=== PATIENT | female | born 1965 | race Caucasian/White ===

== ENCOUNTER 2018-07-10 05:51 | Outpatient (CLI) | payer BC ==
[~2018-07-10] VITALS: Ht 162.6 cm; Wt 92.5 kg
[2018-07-10] MEDS ORDERED: CITA40TA11 PO (11:20)
[2018-07-10] MEDS ORDERED: ACET-2469 PO (11:20)
== END 2018-07-10 11:35 | disposition home or self-care (01) ==
LOC: PREOP 05:51
PROVIDERS: ATTEND Surgery
DX: Z01.818 Encounter for other preprocedural examination (principal)

== ENCOUNTER → 2018-07-14 | Day surgery (SDC) | payer BC ==
[~2018-07-14] VITALS: Ht 162.6 cm; Wt 92.5 kg
[~2018-07-14] MED LIST: ACET-2469 PO; CITA40TA11 PO; LACTATED RINGERS 1,000 ML IV ONE; LACTATED RINGERS 1,000 ML IV PRN; MIDAZOLAM 2 MG/2 ML (VERSED) VIAL ONE; PROPOFOL INJECTION 50 ML IV ONE
--- OUTSIDE RECORDS SUMMARY | 2018-07-14 13:55 | XMS REPORT ---
Author Author BUCK MARLOW [facility] Address [address] [place] [address] Care Team Providers Care Radar Scientist Name Role Phone BUCK MARLOW Unavailable PROBLEMS Unknown Problems ALLERGIES No Information ENCOUNTERS Encounter Location Date Diagnosis [facility] [id number] [place], [place] [id number] Feb, [facility] [id number] [place], [place] [id number] Aug, Dental examination V72.2 IMMUNIZATIONS No Known Immunizations SOCIAL HISTORY Never Assessed REASON FOR VISIT NEW SCRIPT REQUEST PLAN OF CARE VITAL SIGNS MEDICATIONS Unknown Medications RESULTS No Results PROCEDURES No Known procedures INSTRUCTIONS MEDICATIONS ADMINISTERED No Known Medications
[2018-07-14 14:15] VITALS: BP 139/80
--- NOTE | 2018-07-14 15:09 | Progress Note-Pre Operative ---
Pre-Operative Progress Note H&P Reviewed The H&P was reviewed, patient examined and no changes noted. Date Seen by Provider: Jul 14, 2018 Time Seen by Provider: 15:08 Date H&P Reviewed: Jul 14, 2018 Time H&P Reviewed: 15:08 Pre-Operative Diagnosis: screening colonoscopy, ruq abdominal pain ONOFRE AGUILAR DO Jul 14, 2018 15:09
[2018-07-14] MEDS: HURRICAINE EXT TUBE (BENZOCAINE) XX PRN ×2 (15:28→15:37)
[2018-07-14 16:15] VITALS: BP 135/60
--- NOTE | 2018-07-14 16:16 | Discharge Inst-Simple/Standard ---
Discharge Inst-Standard Discharge Medications New, Converted or Re-Newed RX: RX on Chart Patient Instructions/Follow Up Plan of Care/Instructions/FU: 2 weeks Marline Activity as Tolerated: Yes Discharge Diet: Regular Diet ONOFRE AGUILAR DO Jul 14, 2018 16:16
--- NOTE | 2018-07-14 16:18 | Progress Note-Post Operative ---
Post-Operative Progess Note Surgeon (s)/Fleet Manager (s) Surgeon ONOFRE AGUILAR DO Fleet Manager: na Pre-Operative Diagnosis screening colonoscopy, ruq abdominal pain Post-Operative Diagnosis polyp at ge junction, transverse colon polyp x 2 Procedure & Operative Findings Date of Procedure 07/14/18 Procedure Performed/Findings egd c biopsies colonoscopy c hot bx polypectomy x 2 Anesthesia Type per educational technology specialist Estimated Blood Loss Estimated blood loss (mL): scant Specimens/Packing Specimens Removed transverse colon polyp x 2 ONOFRE AGUILAR DO Jul 14, 2018 16:18
[2018-07-14 16:30] VITALS: BP 136/62
[2018-07-14 16:40] VITALS: BP 136/62
--- NOTE | 2018-07-15 02:52 | OPERATIVE REPORT ---
DATE OF SERVICE: 07/14/2018 PREOPERATIVE DIAGNOSIS: Screening colonoscopy, right upper quadrant abdominal pain. POSTOPERATIVE DIAGNOSES: 1. Polyp of the GE junction, transverse colon polyp x2. 2. Diverticulosis. PROCEDURE: EGD with biopsies, colonoscopy with hot biopsy polypectomy x2. SURGEON: Onofre Horan DO ANESTHESIA: Per CLOTHING TRADES WORKERS. ESTIMATED BLOOD LOSS: Scant. COMPLICATIONS: None. INDICATIONS: The patient is a 53-year-old female who has been having right upper quadrant abdominal pain. She also is due for screening colonoscopy. She understands risks and benefits of procedures and wished to proceed with procedure. Consent was signed on the chart. DESCRIPTION OF PROCEDURE: The patient was taken to the endoscopy suite, placed in left lower recumbent position. Timeout was performed. Scope was inserted in mouth, down the esophagus, stomach and duodenum without difficulty. There were no polyps, mass or ulcerations within the duodenum. Scope was slowly retracted back to the stomach where it was further insufflated. No significant changes to the stomach. There were no polyps, mass or ulcerations. Biopsy of the antrum was obtained. Scope was retroflexed noting a small polyp at the GE junction, has a fairly benign appearance. No other pathology noted. Scope was returned to its normal position, slowly withdrawn to the distal esophagus, which had no polyps, mass or ulcerations. Biopsy of the GE junction was obtained. Scope was then slowly retracted back until completely removed. Digital rectal exam was performed. There were no palpable polyps, mass or ulcerations. The scope was inserted into the rectum and advanced all the way to the cecum with minimal difficulty. Prep was adequate. Scope was slowly retracted back. There were no polyps, mass or ulceration in the cecum, ascending colon. In the transverse colon there were 2 small polyps were present, which hot biopsy polypectomies were performed. Scope was slowly retracted back. There were no polyps, masses or ulcerations within the remainder of the transverse colon, descending, sigmoid and rectum. Once in the rectum, scope was also retroflexed noting no other pathology. Through the sigmoid colon, there was also some diverticulosis present. The scope was retroflexed noting no other pathology. Scope was returned to its normal position, slowly withdrawn until completely removed. RECOMMENDATIONS: The patient is recommended high fiber diet. The patient will follow up on biopsies in 2 weeks. The patient would likely benefit from repeat EGD in one year to reevaluate the GE junction polyp to make sure it is unchanged. The patient will need repeat colonoscopy in 5 years. If she has any issues before that will be seen at that time. Job ID: [id number] DocumentID: [id number] Dictated Date: 07/14/2018 16:21:09 Smoking Pipe Maker Date: 07/15/2018 02:51:46 Dictated By: ONOFRE HORAN DO
== END | disposition home or self-care (01) ==
LOC: ENDO 13:52
PROVIDERS: ATTEND Surgery
DX: Z12.11 Encounter for screening for malignant neoplasm of colon (principal); D12.3 Benign neoplasm of transverse colon; K57.30 Diverticulosis of large intestine without perforation or abscess without bleeding; K29.50 Unspecified chronic gastritis without bleeding; B96.81 Helicobacter pylori [H. pylori] as the cause of diseases classified elsewhere; K31.7 Polyp of stomach and duodenum; F32.9 Major depressive disorder, single episode, unspecified; Z79.899 Other long term (current) drug therapy
CPT/HCPCS: 84703

== ENCOUNTER → 2018-07-16 | Outpatient (CLI) | payer BC ==
[~2018-07-16] MED LIST changes: -LACTATED RINGERS 1,000 ML IV ONE; -LACTATED RINGERS 1,000 ML IV PRN; -MIDAZOLAM 2 MG/2 ML (VERSED) VIAL ONE; -PROPOFOL INJECTION 50 ML IV ONE
--- NOTE | 2018-07-16 12:26 | Diagnostic Imaging Report ---
PROCEDURE: US Gallbladder. TECHNIQUE: Multiple real-time grayscale images were obtained over the right upper quadrant in various projections. INDICATION: Abdominal pain in the right upper quadrant as well as right shoulder pain. FINDINGS: The liver is at the upper limits of normal in size at 18.1 cm. There is a circumscribed hypoechoic mass in the left lobe of liver measuring approximately 2.1 x 1.7 cm in size. This may represent a cyst. No other liver masses are seen. The portal vein is patent and shows normal direction of flow. The gallbladder is contracted. No definite stones or sludge are seen. No definite wall thickening or pericholecystic fluid is identified. No biliary ductal dilatation is identified. Right kidney demonstrates normal cortical thickness and echogenicity. The right renal pelvis is mildly prominent consistent with pelviectasis. No calculi are seen. No brandon hydronephrosis is identified. There is no ascites. The pancreas was obscured by bowel gas. IMPRESSION: 1. 2 cm circumscribed hypoechoic mass left lobe of the liver. This most likely represents a cyst but correlation with CT would be useful for confirmation. 2. Minimal right renal pelviectasis. No calculi or brandon hydronephrosis is identified. 3. Gallbladder contraction, limiting evaluation. No definite calculi or evidence of biliary ductal dilatation is identified. Dictated by: Dictated on workstation # [id number]
== END ==
LOC: RAD 07:47
PROVIDERS: ATTEND Surgery
DX: K82.0 Obstruction of gallbladder (principal); R16.0 Hepatomegaly, not elsewhere classified; R10.11 Right upper quadrant pain; M25.511 Pain in right shoulder
CPT/HCPCS: 76705

== ENCOUNTER → 2018-07-30 | Outpatient (CLI) | payer BC ==
[~2018-07-30] MED LIST changes: +CATHETER FLUSH 10 ML SYR IV PRN
--- NOTE | 2018-07-30 12:27 | Diagnostic Imaging Report ---
INDICATION: Right upper quadrant pain PROCEDURE: Hepatobiliary scan with gallbladder ejection TECHNIQUE: 4.97 mCi of technetium 99m Choletec was given intravenously. An Ensure drink was administered at 60 minutes for the ejection fraction. DESCRIPTION OF PROCEDURE: There is homogeneous uptake of isotope throughout the liver. The cystic duct and common duct are both patent. The gallbladder ejection fraction was 89%. IMPRESSION: Normal hepatobiliary scan and gallbladder ejection. Dictated by: Dictated on workstation # [id number]
== END ==
LOC: CARD 09:01
PROVIDERS: ATTEND Surgery
DX: R10.11 Right upper quadrant pain (principal); M25.511 Pain in right shoulder
CPT/HCPCS: 78227

== ENCOUNTER 2018-08-07 05:31 | Outpatient (CLI) | payer BC ==
[~2018-08-07] VITALS: Ht 162.6 cm; Wt 92.5 kg
[~2018-08-07 05:31] MED LIST changes: -CATHETER FLUSH 10 ML SYR IV PRN
== END 2018-08-07 12:50 | disposition home or self-care (01) ==
LOC: PREOP 05:31
PROVIDERS: ATTEND Surgery
DX: Z01.818 Encounter for other preprocedural examination (principal)

== ENCOUNTER 2018-08-14 07:05 | Day surgery (SDC) | payer BC ==
[2018-08-14] VITALS (10 sets, daily range): BP systolic 102–150; BP diastolic 9–86
[~2018-08-14] VITALS: Ht 162.6 cm; Wt 92.5 kg
[2018-08-14] MEDS ORDERED: LACTATED RINGERS 1,000 ML IV PRN (07:29)
[2018-08-14] MEDS ORDERED: ceFAZolin 2 GM/50 ML NS 50 ML IV ONE (07:30)
[2018-08-14] MEDS ORDERED: BUP/EPI 0.5% 1:200,000 (SENSORCAINE) 30 ML VIAL ONE (07:37)
[2018-08-14] MEDS ORDERED: LIDOCAINE 1% INJ 20 ML 20 ML VIAL ONE (07:37)
[2018-08-14] MEDS ORDERED: proPOfol 200 MG/20 ML (DIPRIVAN) VIAL IV ONE (08:00)
[2018-08-14] MEDS ORDERED: SEVOFLURANE (ULTANE) 15 ML INHAL SOLN ONE ×2 (08:00→09:57)
[2018-08-14] MEDS ORDERED: GLYCOPYRROLATE 0.2 MG/ML (ROBINUL) 2 ML VIAL ONE ×2 (08:00→09:53)
[2018-08-14] MEDS ORDERED: NEOSTIGMINE 1 MG/ML 5 ML SYRINGE ONE (08:00)
[2018-08-14] MEDS ORDERED: DEXAMETHASONE 10 MG/ML (DECADRON) 1 ML VIAL ONE (08:00)
[2018-08-14] MEDS ORDERED: ROCURONIUM 10 MG/ML 5 ML SYRINGE IV ONE (08:00)
[2018-08-14] MEDS ORDERED: ONDANSETRON 4 MG/2 ML (SDV) Z0FRAN ONE (08:00)
[2018-08-14] MEDS ORDERED: LIDOCAINE PF 2% 5 ML (XYLOCAINE) VIAL ONE (08:00)
[2018-08-14] MEDS ORDERED: MIDAZOLAM 2 MG/2 ML (VERSED) VIAL ONE (08:01)
[2018-08-14] MEDS ORDERED: fentaNYL INJECTION 100 MCG/2 ML AMP ONE (08:01)
--- NOTE | 2018-08-14 08:12 | Progress Note-Pre Operative ---
Pre-Operative Progress Note H&P Reviewed The H&P was reviewed, patient examined and no changes noted. Date Seen by Provider: August 14, 2018 Time Seen by Provider: 08:00 Date H&P Reviewed: August 14, 2018 Time H&P Reviewed: 08:00 Pre-Operative Diagnosis: ruq abd pain, hyperkinetic gallbladder ONOFRE AGUILAR DO August 14, 2018 08:12
[2018-08-14] MEDS ORDERED: LACTATED RINGERS 1,000 ML IV ONE (09:53)
[2018-08-14] MEDS ORDERED: KETOROLAC 30 MG/ML VIAL ONE (09:57)
--- NOTE | 2018-08-14 09:57 | Progress Note-Post Operative ---
Post-Operative Progess Note Surgeon (s)/Candle Making Supervisor (s) Surgeon ONOFRE AGUILAR DO Candle Making Supervisor: Dr. Lal Pre-Operative Diagnosis ruq abd pain, hyperkinetic gallbladder Post-Operative Diagnosis same Procedure & Operative Findings Date of Procedure 08/14/18 Procedure Performed/Findings lap lily c ioc Anesthesia Type gen Estimated Blood Loss Estimated blood loss (mL): min Specimens/Packing Specimens Removed gallbladder ONOFRE AGUILAR DO August 14, 2018 09:57
[2018-08-14] MEDS ORDERED: ACHD5005 PO (09:59)
[2018-08-14] MEDS ORDERED: DOCU-143 PO (09:59)
--- NOTE | 2018-08-14 10:01 | Discharge Inst-Simple/Standard ---
Discharge Inst-Standard Discharge Medications New, Converted or Re-Newed RX: RX on Chart Patient Instructions/Follow Up Plan of Care/Instructions/FU: 2 weeks Marline Activity as Tolerated: No Discharge Diet: Regular Diet Other Inst to Patient Follow up Appt: Make appointment for 2 weeks. Instructions: No lifting greater than 10 pounds. No strenuous activity. May shower in 24 hours, no tub bath or soaking. Use incentive spirometer at home as directed. No Smoking Skin/Wound Care: You have special glue over incisions it will fall off on its own. Symptoms to Report: Appetite Changes, Extremity Discoloration, Numbness/Tingling, Swelling Increased , Bleeding Excessive, Eyesight Changes, Pain Increased, Urine Color Change, Constipation(Persistent), Fever over 101 degree F, Pain/Pressure in chest, Urinating Difficulty, Cough Up/Vomit Blood, Heart Beat Irreg/Pounding, Pain/ Pressure in jaw, Vaginal Bleeding Increase, Cramps in feet or legs, Lightheadedness, Pain/Pressure in shoulder, Diarrhea(Persistent), Memory Changes Suddenly, Questions/Concerns, Weight gain consecutive days, Dizziness/ Fainting, Nausea/Vomiting, Shortness of Breath, Weight gain over 2 pounds. If eyes or skin turn yellow notify physician. If questions or concerns contact your physician Or seek help at emergency department. ONOFRE AGUILAR DO August 14, 2018 10:01
[2018-08-14] MEDS ORDERED: morphine INJ 10 MG/ML 1ML (SYR OR VIAL) ONE (10:10)
[2018-08-14] MEDS ORDERED: HYDROmorphone 2 MG/ML VIAL (DILAUDID) IV ONE (10:15)
[2018-08-14] MEDS ORDERED: morphine INJ 10 MG/ML 1ML (SYR OR VIAL) IVP ONE (10:15)
[2018-08-14] MEDS ORDERED: ONDANSETRON 4 MG/2 ML (SDV) Z0FRAN IVP PRN (10:15)
[2018-08-14] MEDS ORDERED: NYST1000 PO (11:23)
[2018-08-14] MEDS ORDERED: HYDROcodone/APAP 5 MG/325 MG (LORTAB) TAB ONE (12:02)
[2018-08-14] MEDS ORDERED: HYDROcodone/APAP 5 MG/325 MG (LORTAB) TAB PO ONE (12:15)
[2018-08-14] MEDS ORDERED: ONDANSETRON 4 MG (ZOFRAN) ORAL DISSOLVE TAB ONE (12:25)
[2018-08-14] MEDS ORDERED: ONDANSETRON 4 MG (ZOFRAN) ORAL DISSOLVE TAB PO ONE (12:30)
--- NOTE | 2018-08-14 13:06 | Anesthesia-General Post-Op ---
General Patient Condition Mental Status/LOC: Same as Preop Cardiovascular: Satisfactory Nausea/Vomiting: Absent Respiratory: Satisfactory Pain: Controlled Complications: Absent Post Op Complications Complications None Follow Up Care/Instructions Patient Instructions None needed. Anesthesia/Patient Condition Patient Condition Patient was seen after the procedure this morning and she was doing well, no complaints, stable vital signs, no apparent adverse anesthesia problems. RUSSELL SALTER DO August 14, 2018 13:06
--- NOTE | 2018-08-14 13:31 | Diagnostic Imaging Report ---
INDICATION: Fluoroscopy during intraoperative cholangiogram. FINDINGS: Fluoroscopy was provided in the OR during intraoperative cholangiogram. A total of 9 seconds of fluoroscopy was utilized. Images demonstrate contrast being injected via the cystic duct remnant. Visualized intrahepatic and extrahepatic bile ducts are normal caliber. There are no filling defects to suggest retained stone. Contrast is seen within the duodenum. IMPRESSION: Fluoroscopy during intraoperative cholangiogram. Dictated by: Dictated on workstation # [id number]
--- NOTE | 2018-08-14 22:01 | OPERATIVE REPORT ---
DATE OF SERVICE: 08/14/2018 PREOPERATIVE DIAGNOSIS: Right upper quadrant abdominal pain and hyperkinetic gallbladder. POSTOPERATIVE DIAGNOSIS: Right upper quadrant abdominal pain and hyperkinetic gallbladder. PROCEDURE: Laparoscopic cholecystectomy with intraoperative cholangiogram. SURGEON: Onofre Horan DO TELEVISION JOURNALIST: Dr. Lal, assisted in retraction, dissection and closure. ANESTHESIA: General. ESTIMATED BLOOD LOSS: Minimal. COMPLICATIONS: None. INDICATIONS: The patient is a 53-year-old female who has been having right upper quadrant abdominal pain and gallbladder ejection fraction was found to be greater than 80%. She understands risks and benefits of procedure and wished to proceed with procedure. Consent was signed on the chart. DESCRIPTION OF PROCEDURE: The patient was taken to the operating suite. She was prepped and draped in sterile fashion. Timeout was performed. Midline incision was made just above the umbilicus for a 12 mm trocar site. Cautery dissection was taken down the fascia, which was then scored, grasped and elevated. The abdomen was then entered. An 0 Vicryl was placed in a ywodrk-po-axqxc fashion for a closure at the end of the case. A balloon trocar was inserted in the abdomen. Pneumoperitoneum was achieved. Under direct visualization of the laparoscope, a 5 mm trocar was placed in the subxiphoid region and two 5 mm trocars were placed in the right upper quadrant. Gallbladder was grasped, elevated. The cystic duct and cystic artery were then dissected out. Clips were placed on the proximal and distal portion of the cystic artery and distal portion of the cystic duct. The duct was then partially transected. Arrow catheter was inserted and cholangiogram was performed. There were no filling defects. Contrast made its way into the duodenum without difficulty. The catheter was then removed. Clips were placed on the proximal portion of the cystic duct. The duct and artery were then transected. Hook cautery used to dissect the gallbladder and the gallbladder fossa achieving hemostasis. The posterior branch of the cystic artery was present, which clips were placed on it and the gallbladder was then removed. It was placed in an Endobag and removed through the 12 mm trocar site. Hemostasis was achieved. The abdomen was irrigated with copious amounts of irrigation and suctioned. The abdomen was desufflated. Trocars were removed. The 0 Vicryl that was placed in dtrpwk-kd-rhkly fashion at the beginning of the case was then tied and the skin was then closed using 4-0 Monocryl in a subcuticular fashion. Skin Affix was placed over the incisions. The patient tolerated the procedure well without any complications. She was taken to recovery room in stable condition. Job ID: [id number] DocumentID: [id number] Dictated Date: 08/14/2018 15:54:48 Protective Signal Installer Date: 08/14/2018 22:00:28 Dictated By: ONOFRE HORAN DO
== END 2018-08-14 12:40 | disposition home or self-care (01) ==
LOC: SDC 07:05
PROVIDERS: ATTEND Surgery
DX: K81.1 Chronic cholecystitis (principal); K21.9 Gastro-esophageal reflux disease without esophagitis; E66.9 Obesity, unspecified; Z68.35 Body mass index [BMI] 35.0-35.9, adult; Z79.84 Long term (current) use of oral hypoglycemic drugs; Z79.899 Other long term (current) drug therapy
CPT/HCPCS: 84703; 87081

== ENCOUNTER → 2018-10-16 | Outpatient (CLI) | payer BC ==
[~2018-10-16] MED LIST changes: +ACHD5005 PO; +DOCU-143 PO; +NYST1000 PO
--- NOTE | 2018-10-16 16:45 | Diagnostic Imaging Report ---
INDICATION: Routine screening. COMPARISON: Prior mammograms from 09/23/2017 and 09/19/2014. EXAMINATION: 2D and 3D bilateral screening mammography was performed with CAD. The current study was also evaluated with a Computer Aided Detection (CAD) system. FINDINGS: Scattered fibroglandular densities are identified, bilaterally. Benign nodules in medial aspect of the right breast are noted. These appear stable. No new mass or malignant appearing microcalcifications are seen. Axillae are unremarkable. IMPRESSION: No mammographic features suspicious for malignancy are identified. ACR BI-RADS Category 2: Benign findings. Result letter will be mailed to the patient. Note: At least 10% of breast cancer is not imaged by mammography. Dictated on workstation # [id number]
== END ==
LOC: RAD 08:28
PROVIDERS: ATTEND Nurse Practitioner Family
DX: Z12.31 Encounter for screening mammogram for malignant neoplasm of breast (principal); M54.31 Sciatica, right side; L30.9 Dermatitis, unspecified; F32.9 Major depressive disorder, single episode, unspecified; Z53.8 Procedure and treatment not carried out for other reasons
CPT/HCPCS: 77067

== ENCOUNTER → 2018-10-21 | Outpatient (CLI) | payer BC ==
--- NOTE | 2018-10-21 16:15 | Diagnostic Imaging Report ---
PROCEDURE: MRI lumbar spine. TECHNIQUE: Multiplanar, multisequence MRI of the lumbar spine was performed without contrast. INDICATION: Chronic low back pain. FINDINGS: Lumbar spinal curvature and alignment are unremarkable. Conus medullaris is unremarkable at the L1 level. There is diffuse desiccation of the lumbar discs. There is diffuse bulging of the L1-L2 disc with right lateral protrusion. This is associated with degenerative facet arthropathy and results in moderate spinal stenosis with moderate right lateral recess stenosis. This does result in mild bilateral neural foraminal stenosis which is greater on the right. At L2-L3, there is diffuse disc bulging with ligamentum flavum hypertrophy and degenerative facet arthropathy which cause mild trefoil-type spinal stenosis and moderate right neural foraminal stenosis. At the L3-L4 level, there is disc bulging and endplate spurring with associated degenerative facet arthropathy which is greater on the left. This causes mild trefoil-type spinal stenosis with moderately severe left lateral recess and neural foraminal stenosis. At L4-L5, there is left paramedian disc protrusion with associated degenerative disc bulging which is eccentric toward the left. This results in moderate left lateral recess and neural foraminal stenosis. There is mild T2 signal surrounding the L2-L3 disc and the endplates to the left of midline at L3-L4. This is likely related to Modic change. No fracture is identified. IMPRESSION: Multilevel degenerative disc and facet disease as described above. This does result in [id number]-[id number] spinal and right lateral recess stenosis at the L2-L3 and L3-L4 levels and greater stenosis on the left at L3-L4 and L4-L5. Dictated by: Dictated on workstation # [id number]
== END ==
LOC: RAD 15:08
PROVIDERS: ATTEND Nurse Practitioner Family
DX: M47.816 Spondylosis without myelopathy or radiculopathy, lumbar region (principal); M51.36 Other intervertebral disc degeneration, lumbar region; M48.061 Spinal stenosis, lumbar region without neurogenic claudication; M51.26 Other intervertebral disc displacement, lumbar region; M54.32 Sciatica, left side; L30.9 Dermatitis, unspecified; F32.9 Major depressive disorder, single episode, unspecified
CPT/HCPCS: 72148

== ENCOUNTER 2019-02-08 09:38 | Emergency (ER) | payer BC ==
[~2019-02-08] VITALS: Ht 162.6 cm; Wt 90.5 kg
[2019-02-08] MEDS ORDERED: CYCLOBENZAPRINE 10 MG (FLEXERIL) TAB PO STA (11:59)
[2019-02-08] MEDS ORDERED: IBUPROFEN 600 MG (MOTRIN) TAB PO ONE (12:00)
--- NOTE | 2019-02-08 12:05 | ED Back Pain ---
General Chief Complaint: Back Problems Stated Complaint: BACK PAIN Nursing Triage Note: complaint of back pain, pt states it chronic. pt states due for "shot " in back on . Nursing Sepsis Screen: No Definite Risk History of Present Illness Date Seen by Provider: Feb 08, 2019 Time Seen by Provider: 11:45 Initial Comments 53-year-old female presents for chronic back pain. She has been seen by Dr. Vasques in his managed by Dr. Caballero for medication (tramadol and gabapentin). She had an MRI in September 2018 which showed significant degenerative changes in stenosis in the lumbar spine. She is scheduled for her third epidural injection on 02/11/19. She denies any injuries today but did more walking than usual over the weekend. She denies any bowel or bladder incontinence or retention. She is not on NSAIDs or muscle relaxant at the present time. Location: Lumbar Spine, Paraspinous Muscles Timing/Duration: Constant Severity: Mild Pain/Injury Location: Back Associated Symptoms: denies symptoms; No muscle spasms, No fever, No weakness, No numbness in legs/feet, No tingling in legs/feet, No sensory/motor loss, No lower back pain, No loss of bladder control, No loss of bowel control, No other Allergies and Home Medications Allergies Coded Allergies: No Known Drug Allergies (Unverified , 08/07/18) Home Medications Citalopram Hydrobromide 40 Mg Tablet, 40 MG PO DAILY, (Reported) Docusate Sodium 100 Mg Capsule, 100 MG PO DAILY Prescribed by: ONOFRE AGUILAR on 08/14/18 0959 Hydrocodone Bit/Acetaminophen 1 Tab Tab, 1-2 TAB PO Q6H PRN for PAIN-MODERATE Prescribed by: ONOFRE AGUILAR on 08/14/18 0959 Nystatin 100,000 Unit/1 Ml Oral.susp, 5 ML PO Q6H Prescribed by: JOHNNA BISHOP on 08/14/18 1123 Patient Home Medication List Home Medication List Reviewed: Yes Review of Systems Constitutional: no symptoms reported, see HPI Musculoskeletal: see HPI, back pain, muscle pain, muscle cramps All Other Systems Reviewed Negative Unless Noted: Yes Past Nzijhtp-Ahylqv-Dkwoud Hx Past Med/Social Hx: Reviewed Nursing Past Med/Soc Hx Patient Social History Alcohol Use: Denies Use Recreational Drug Use: No Smoking Status: Never a Smoker 2nd Hand Smoke Exposure: No Recent Foreign Travel: No Contact w/Someone Who Travel: No Recent Infectious Disease Expo: No Recent Hopitalizations: No Physical Abuse: No Sexual Abuse: No Immunizations Up To Date Date of Influenza Vaccine: Jan 05, 2018 Seasonal Allergies Seasonal Allergies: No Past Medical History Surgeries: Yes (BREAST REDUCTION, CTR, KIDNEY DONaTION) Orthopedic Respiratory: No Cardiac: No Neurological: No Sexually Transmitted Disease: No HIV/AIDS: No Genitourinary: No Gastrointestinal: Yes Gastroesophageal Reflux, Chronic Constipation, Gall Bladder Disease Musculoskeletal: Yes (BACK) Arthritis Endocrine: No HEENT: Yes (GLASSES) Loss of Vision: Bilateral Hearing Impairment: Denies Cancer: No Psychosocial: Yes Depression Integumentary: No Blood Disorders: No Adverse Reaction/Blood Tranf: No (N/A) Physical Exam Vital Signs Vital Signs - First Documented 02/08/19 09:50 Temp 36.6 Pulse 78 Resp 18 B/P (MAP) 143/91 (108) Pulse Ox 98 O2 Delivery Room Air Capillary Refill : Less Than 3 Seconds Height, Weight, BMI Height: 5'4.00" Weight: 204lbs. 0.0oz. 92.104751ab; 34.00 BMI Method: General Appearance: No Apparent Distress, WD/WN Neck: Full Range of Motion, Normal Inspection, Non Tender, Supple Cardiovascular: Regular Rate, Rhythm, No Edema, No Murmur, Normal Peripheral Pulses Respiratory: Chest Non Tender, Lungs Clear, Normal Breath Sounds Back: Normal Inspection, No CVA Tenderness, Decreased Range of Motion, Muscle Spasm, Vertebral Tenderness, Other (patient ambulates with a steady gait, able to toe and heel walk. Decreased range of motion to the lumbar spine, secondary to pain. PowerV/V L4-S1. Sensation to light touch intact bilateral lower extremities.) Extremity: Normal Capillary Refill, Normal Inspection, Normal Range of Motion Neurologic/Psychiatric: Alert, Oriented x3, No Motor/Sensory Deficits, Normal Mood/Affect Skin: Normal Color, Warm/Dry Progress/Results/Core Measures Results/Orders My Orders Orders - JOHNNA BUSTOS Ibuprofen Tablet (Motrin Tablet) (02/08/19 12:00) Cyclobenzaprine Tablet (Flexeril Tablet) (02/08/19 11:59) Medications Given in ED Current Medications Medications Dose Ordered Sig/Danny Route Start Time Stop Time Status Last Admin Dose Admin Ibuprofen 600 mg ONCE ONCE PO 02/08/19 12:00 02/08/19 12:01 DC 02/08/19 12:12 600 MG Vital Signs/I&O 02/08/19 02/08/19 09:50 12:13 Temp 36.6 36.6 Pulse 78 78 Resp 18 18 B/P (MAP) 143/91 (108) 143/91 (108) Pulse Ox 98 98 O2 Delivery Room Air Blood Pressure Mean: 108 POS Departure Impression Primary Impression: Lumbar stenosis Qualified Codes: M48.061 - Spinal stenosis, lumbar region without neurogenic claudication Additional Impression: Lumbar back pain Disposition: HOME, SELF-CARE Condition: Improved Departure-Patient Inst. Decision time for Depature: 12:05 Referrals: NO,LOCAL PHYSICIAN (PCP/Family) Primary Care Physician Patient Instructions: Spinal Stenosis (DC), Low Back Pain (DC) Add. Discharge Instructions: Begin taking the anti-inflammatory medication as previously been prescribed you. Follow-up with your primary care provider or your real estate management specialist for changes in your symptoms or for medication management. Keep your scheduled appointment for your epidural injection later this week. Alternate heat and ice to your low back for 20 minutes every 2 hours while awake. If there is no Tylenol in medication you are taking, you may take Tylenol 650 mg every 8 hours. Return to the emergency department for new, urgent health care needs. All discharge instructions reviewed with patient and/or family. Voiced understanding. Work/School Note: Work Release Form Date Seen in the Emergency Department: Feb 08, 2019 Return to Work: Feb 09, 2019 Restrictions: No Restrictions Copy Copies To 1: SADE CABALLERO DO; PHYLLIS VASQUES MD, AMY ARNP Feb 08, 2019 12:05 POS
[2019-02-08 12:13] VITALS: BP 143/91
== END 2019-02-08 12:13 | disposition home or self-care (01) ==
LOC: EDUNIT# 09:38 → ER 09:38
DX: M48.061 Spinal stenosis, lumbar region without neurogenic claudication (principal); F32.9 Major depressive disorder, single episode, unspecified; K21.9 Gastro-esophageal reflux disease without esophagitis
CPT/HCPCS: 99283

== ENCOUNTER 2019-11-20 13:30 | Emergency (ER) | payer BC, OTHER ==
[~2019-11-20] VITALS: Ht 163 cm; Wt 91.0 kg
[~2019-11-20 13:30] MED LIST changes: -ACET-2469 PO; +ACET-2715 PO
[2019-11-20] MEDS ORDERED: FAMOTIDINE 20 MG (PEPCID) TABLET PO STA (13:50)
[2019-11-20 13:58] LABS: BASOPHILS % (AUTO) 0 % (0-10); EOSINOPHILS # (AUTO) 0.1 10^3/uL (0.0-0.3); EOSINOPHILS % (AUTO) 1 % (0-10); HEMATOCRIT 39 % (35-52); HEMOGLOBIN 13.2 G/DL (11.5-16.0); LYMPHOCYTES # (AUTO) 2.5 X 10^3 (1.0-4.0); LYMPHOCYTES % (AUTO) 25 % (12-44); MEAN CORPUSCULAR HEMOGLOBIN 31 PG (25-34); MEAN CORPUSCULAR HGB CONC 34 G/DL (32-36); MEAN CORPUSCULAR VOLUME 89 FL (80-99); MEAN PLATELET VOLUME 10.6 FL (7.4-10.4); MONOCYTES # (AUTO) 0.8 X 10^3 (0.0-1.0); MONOCYTES % (AUTO) 8 % (0-12); NEUTROPHILS # (AUTO) 6.4 X 10^3 (1.8-7.8); NEUTROPHILS % (AUTO) 65 % (42-75); PLATELET COUNT 309 10^3/uL (130-400); RED CELL DISTRIBUTION WIDTH 14.5 % (10.0-14.5); WHITE BLOOD COUNT 9.8 10^3/uL (4.3-11.0)
--- NOTE | 2019-11-20 13:59 | ED Chest Pain ---
General Chief Complaint: General Problems/Pain Stated Complaint: CHEST PAIN - DIARRHEA Nursing Triage Note: Patient reports chronic diarrhea, with it getting worse over the past couple weeks. states for about 1 week had cramping pain in her chest. denies SOA. Nursing Sepsis Screen: No Definite Risk Source: patient Exam Limitations: no limitations History of Present Illness Date Seen by Provider: Nov 20, 2019 Time Seen by Provider: 13:30 Initial Comments Patient presents ER by private conveyance with chief complaint that today she started to experience some pressure in her left upper quadrant chest that is not made better by moving her arm or massaging it. It is not made worse by deep breathing but it is worse when she lays down flat. The chest pain/pressure started about one week ago. She does take an antacid daily. She does not have a history of coronary disease. She does not have shortness of breath cough fever or chills. She has had loose watery stool for greater than 1 month. She says her primary care provider recommend that she take a medication but she's not sure what it was and she didn't feel like it helped. She's been using Pepto-Bismol without any help. She denies a history of irritable bowel or inflammatory bowel in either herself or her family. No family history of early-onset coronary disease. No history of COPD. She does not smoke or have a history of pancreatitis. She had her gallbladder out a couple years ago. She also has a history of nephrectomy for donation. She says she's been feeling this chest pain intermittently for the past several days. She denies rating it 0-10 and says it's only pressure. No history of leg or calf swelling, shortness of breath, hemoptysis. Allergies and Home Medications Allergies Coded Allergies: No Known Drug Allergies (Unverified , 08/07/18) Home Medications Citalopram Hydrobromide 40 Mg Tablet, 40 MG PO DAILY, (Reported) Docusate Sodium 100 Mg Capsule, 100 MG PO DAILY Prescribed by: ONOFRE AGUILAR on 08/14/18 0959 Hydrocodone Bit/Acetaminophen 1 Tab Tab, 1-2 TAB PO Q6H PRN for PAIN-MODERATE Prescribed by: ONOFRE AGUILAR on 08/14/18 0959 Nystatin 100,000 Unit/1 Ml Oral.susp, 5 ML PO Q6H Prescribed by: JOHNNA BISHOP on 08/14/18 1123 Sucralfate 1 Gm Tablet, 1 GM PO QIDACHS Prescribed by: MARY JIMÉNEZ on 11/20/19 1503 Patient Home Medication List Home Medication List Reviewed: Yes Review of Systems Review of Systems Constitutional: No chills, No fever, No malaise EENTM: No Blurred Vision, No Double Vision Respiratory: Denies Cough, Denies Shortness of Air Cardiovascular: See HPI, Chest Pain Gastrointestinal: See HPI, Abdominal Pain; Denies Constipated; Diarrhea, Nausea; Denies Vomiting Genitourinary: Denies Burning, Denies Discharge Musculoskeletal: No back pain, No joint pain Skin: No pruritus, No rash Psychiatric/Neurological: Denies Headache, Denies Numbness Endocrine: Denies Flushing, Denies Increased Hunger, Denies Increased Thrist All Other Systems Reviewed Negative Unless Noted: Yes Past Nhxdpru-Kinjte-Ewrbfl Hx Patient Social History Alcohol Use: Denies Use Recreational Drug Use: No Smoking Status: Never a Smoker 2nd Hand Smoke Exposure: No Recent Foreign Travel: No Contact w/Someone Who Travel: No Recent Infectious Disease Expo: No Recent Hopitalizations: No Immunizations Up To Date Date of Influenza Vaccine: Jan 05, 2018 Seasonal Allergies Seasonal Allergies: No Past Medical History Surgeries: Yes (BREAST REDUCTION, CTR, KIDNEY DONaTION) Orthopedic Respiratory: No Cardiac: No Neurological: No Sexually Transmitted Disease: No HIV/AIDS: No Genitourinary: No Gastrointestinal: Yes Gastroesophageal Reflux, Chronic Constipation, Gall Bladder Disease Musculoskeletal: Yes (BACK) Arthritis Endocrine: No HEENT: Yes (GLASSES) Loss of Vision: Bilateral Hearing Impairment: Denies Cancer: No Psychosocial: Yes Depression Integumentary: No Blood Disorders: No Adverse Reaction/Blood Tranf: No (N/A) Physical Exam Vital Signs Vital Signs - First Documented 11/20/19 13:37 Temp 36.5 Pulse 67 Resp 15 B/P (MAP) 156/93 (114) Pulse Ox 98 Capillary Refill : Less Than 3 Seconds Height, Weight, BMI Height: 5'4.00" Weight: 204lbs. 0.0oz. [id number]; 34.00 BMI Method: General Appearance: No Apparent Distress, Anxious, Obese HEENT: PERRL/EOMI, Pharynx Normal, Moist Mucous Membranes Neck: Full Range of Motion, Normal Inspection Respiratory: Lungs Clear, Normal Breath Sounds, No Accessory Muscle Use, No Respiratory Distress Cardiovascular: Regular Rate, Rhythm, Normal Peripheral Pulses Gastrointestinal: Normal Bowel Sounds, Soft, Tenderness (generally all 4 quadrants without Pelayo sign, psoas sign, McBurney's point tenderness, Rovsing sign or other mesenteric signs) Extremity: Normal Capillary Refill, Normal Inspection, Normal Range of Motion, No Pedal Edema Neurologic/Psychiatric: Alert, Oriented x3, No Motor/Sensory Deficits, Normal Mood/Affect Skin: Normal Color, Warm/Dry Progress/Results/Core Measures Results/Orders Lab Results Laboratory Tests Test 11/20/19 13:45 Range/Units White Blood Count 9.8 4.3-11.0 10^3/uL Red Blood Count 4.31 L 4.35-5.85 10^6/uL Hemoglobin 13.2 11.5-16.0 G/DL Hematocrit 39 35-52 % Mean Corpuscular Volume 89 80-99 FL Mean Corpuscular Hemoglobin 31 25-34 PG Mean Corpuscular Hemoglobin Concent 34 32-36 G/DL Red Cell Distribution Width 14.5 10.0-14.5 % Platelet Count 309 130-400 10^3/uL Mean Platelet Volume 10.6 H 7.4-10.4 FL Neutrophils (%) (Auto) 65 42-75 % Lymphocytes (%) (Auto) 25 12-44 % Monocytes (%) (Auto) 8 0-12 % Eosinophils (%) (Auto) 1 0-10 % Basophils (%) (Auto) 0 0-10 % Neutrophils # (Auto) 6.4 1.8-7.8 X 10^3 Lymphocytes # (Auto) 2.5 1.0-4.0 X 10^3 Monocytes # (Auto) 0.8 0.0-1.0 X 10^3 Eosinophils # (Auto) 0.1 0.0-0.3 10^3/uL Basophils # (Auto) 0.0 0.0-0.1 10^3/uL Prothrombin Time 13.9 12.2-14.7 SEC INR Comment 1.0 0.8-1.4 Activated Partial Thromboplast Time 31 24-35 SEC D-Dimer 0.42 0.00-0.49 UG/ML Sodium Level 140 135-145 MMOL/L Potassium Level 4.2 3.6-5.0 MMOL/L Chloride Level 108 H 98-107 MMOL/L Carbon Dioxide Level 23 21-32 MMOL/L Anion Gap 9 5-14 MMOL/L Blood Urea Nitrogen 19 H 7-18 MG/DL Creatinine 0.93 0.60-1.30 MG/DL Estimat Glomerular Filtration Rate > 60 BUN/Creatinine Ratio 20 Glucose Level 112 H 70-105 MG/DL Calcium Level 8.8 8.5-10.1 MG/DL Corrected Calcium 8.8 8.5-10.1 MG/DL Magnesium Level 1.7 1.6-2.4 MG/DL Total Bilirubin 0.4 0.1-1.0 MG/DL Aspartate Amino Transf (AST/SGOT) 22 5-34 U/L Alanine Aminotransferase (ALT/SGPT) 35 0-55 U/L Alkaline Phosphatase 64 40-136 U/L Myoglobin 26.4 10.0-92.0 NG/ML Troponin I < 0.028 <0.028 NG/ML Total Protein 7.4 6.4-8.2 GM/DL Albumin 4.0 3.2-4.5 GM/DL Lipase 29 8-78 U/L My Orders Orders - JESSYMARY Cbc With Automated Diff (11/20/19 13:50) Magnesium (11/20/19 13:50) Chest 1 View, Ap/Pa Only (11/20/19 13:50) Ekg Tracing (11/20/19 13:50) Comprehensive Metabolic Panel (11/20/19 13:50) Myoglobin Serum (11/20/19 13:50) Protime With Inr (11/20/19 13:50) Partial Thromboplastin Time (11/20/19 13:50) O2 (11/20/19 13:50) Monitor-Rhythm Ecg Trace Only (11/20/19 13:50) Lipid Panel (11/21/19 06:00) Ed Iv/Invasive Line Start (11/20/19 13:50) Lipase (11/20/19 13:50) Troponin I (11/20/19 13:50) Nitroglycerin 0.4 Mg Btl 25's (Nitrostat (11/20/19 14:00) Aspirin Chewable Tablet (Baby Aspirin Ch (11/20/19 14:00) Ondansetron Injection (Zofran Injectio (11/20/19 14:00) Lidocaine 2% Viscous 15 Ml (Xylocaine Vi (11/20/19 14:00) Famotidine Tablet (Pepcid Tablet) (11/20/19 13:50) Antacid Suspension (Mylanta Suspension (11/20/19 14:00) Fibrin Degradation Products (11/20/19 13:45) Stool Culture (11/20/19 14:02) Fecal Wbc (11/20/19 14:02) Pantoprazole Injection (Protonix Injecti (11/20/19 14:15) Ed Iv/Invasive Line Start (11/20/19 14:02) Ns Iv 1000 Ml (Sodium Chloride 0.9%) (11/20/19 14:02) Medications Given in ED Current Medications Medications Dose Ordered Sig/Danny Route Start Time Stop Time Status Last Admin Dose Admin Al Hydrox/Mg Hydrox/Simethicone 30 ml ONCE ONCE PO 11/20/19 14:00 11/20/19 14:01 DC 11/20/19 14:07 30 ML Aspirin 324 mg ONCE ONCE PO 11/20/19 14:00 11/20/19 14:01 DC 11/20/19 14:07 324 MG Lidocaine HCl 15 ml ONCE ONCE PO 11/20/19 14:00 11/20/19 14:01 DC 11/20/19 14:07 15 ML Ondansetron HCl 4 mg ONCE ONCE IVP 11/20/19 14:00 11/20/19 14:01 DC 11/20/19 14:07 4 MG Pantoprazole 40 mg ONCE ONCE IV 11/20/19 14:15 11/20/19 14:16 DC 11/20/19 14:11 40 MG Vital Signs/I&O 11/20/19 13:37 Temp 36.5 Pulse 67 Resp 15 B/P (MAP) 156/93 (114) Pulse Ox 98 Blood Pressure Mean: 114 Progress Progress Note #1: Time: 14:01 Progress Note She does not have any significant coronary disease risk factors however we'll give her some aspirin, GI cocktail and obtain some labs including lipase and troponin. Over a month of diarrhea however she does not appear clinically to be dehydrated. Give her some Zofran for her nausea and encourage her to follow up outpatient either with primary care or with general surgery to discuss endoscopy. If she produces stool we will send it for samples. Progress Note #2: Time: 14:53 Progress Note The patient is having some bloating still but no chest pain or epigastric pain after pantoprazole and GI cocktail. Plan to put her on some Carafate and have her follow up outpatient with either primary care or Dr. Aguilar who scoped her 1-1/2 years ago. The patient's endoscopy reports from last year do demonstrate a solitary tubular adenoma in the transverse colon. She also had positive H. pylori but she does not recall ever being treated for this. We have suggested she go back to her primary care doctor and pursue this. Initial ECG Impression Date: Nov 20, 2019 Initial ECG Impression Time: 13:36 Initial ECG Rate: 67 Initial ECG Rhythm: Normal Sinus Initial ECG Intervals: Normal Initial ECG Impression: Normal Initial ECG Comparisson: No Previous ECG Available Comment Normal sinus rhythm without clinically relevant ST elevation or depression. Diagnostic Imaging Diagonstic Imaging: Xray Plain Films/CT/US/NM/MRI: chest Comments No acute cardiopulmonary process noted on one view chest x-ray. Reviewed: Reviewed by Me Departure Impression Primary Impression: Gastritis and duodenitis Disposition: HOME, SELF-CARE Condition: Stable Departure-Patient Inst. Decision time for Depature: 15:01 Referrals: SADE CABALLERO DO (PCP) Primary Care Physician NO,LOCAL PHYSICIAN (Family) Primary Care Physician Patient Instructions: Gastritis (DC) Add. Discharge Instructions: Continue taking your antacid as prescribed. Start taking the Carafate 1 tablet 30 minutes prior to each meal and once at bedtime for a total of 4 times a day. Use Maalox, Tums, Rolaids, Gas-X etc. to control acid reflux. Imodium 2 tablets if you have diarrhea followed by one tablet every 4 hours afterwards if you're still having watery, loose stools. Follow-up with your primary care doctor in the next 1-2 weeks and discuss whether or not you or ever appropriately treated for H. pylori as demonstrated on your endoscopy from 2019. All discharge instructions reviewed with patient and/or family. Voiced understanding. Scripts Sucralfate (Carafate) 1 Gm Tablet 1 GM PO QIDACHS for 14 Days, #56 TAB 0 Refills Prov: MARY JIMÉNEZ 11/20/19 Copy Copies To 1: SADE CABALLERO TITUS J Nov 20, 2019 13:59
[2019-11-20] MEDS ORDERED: LIDOCAINE 2% VISCOUS 15 ML UDC PO ONE (14:00)
[2019-11-20] MEDS ORDERED: ASPIRIN 81 MG CHEW (CHILDREN'S ASA) PO ONE (14:00)
[2019-11-20] MEDS ORDERED: ONDANSETRON 4 MG/2 ML (SDV) Z0FRAN IVP ONE (14:00)
[2019-11-20] MEDS ORDERED: NITROGLYCERIN 0.4 MG SL TABS BTL 25'S SL PRN (14:00)
[2019-11-20] MEDS ORDERED: ANTACID SUSP 30 ML UDC (MYLANTA) PO ONE (14:00)
[2019-11-20] MEDS ORDERED: NS IV 1000 ML 1,000 ML IV SCH (14:02)
[2019-11-20 14:06] LABS: FIBRIN DEGRADATION PRODUCTS 0.42 UG/ML (0.00-0.49); PROTHROMBIN TIME PATIENT 13.9 SEC (12.2-14.7)
[2019-11-20] MEDS ORDERED: PANTOPRAZOLE 40 MG (PROTONIX) VIAL IV ONE (14:15)
[2019-11-20 14:17] LABS: ALANINE AMINOTRANSFERASE 35 U/L (0-55); ALKALINE PHOSPHATASE 64 U/L (40-136); BILIRUBIN,TOTAL 0.4 MG/DL (0.1-1.0); BUN/CREATININE RATIO 20; CALCIUM 8.8 MG/DL (8.5-10.1); CARBON DIOXIDE 23 MMOL/L (21-32); CHLORIDE 108 MMOL/L (98-107); CREATININE SERUM 0.93 MG/DL (0.60-1.30); GFR ESTIMATED > 60; GLUCOSE 112 MG/DL (70-105); LIPASE 29 U/L (8-78); MAGNESIUM 1.7 MG/DL (1.6-2.4); POTASSIUM 4.2 MMOL/L (3.6-5.0); SODIUM 140 MMOL/L (135-145); TOTAL PROTEIN 7.4 GM/DL (6.4-8.2)
[2019-11-20] MEDS ORDERED: SUCR1TAB36 PO (15:03)
[2019-11-20 15:05] VITALS: BP 145/80
--- NOTE | 2019-11-20 15:49 | Diagnostic Imaging Report ---
EXAM: Chest 1 view, ap/pa only INDICATION: Chest pains. COMPARISON: None. FINDINGS: Cardiomegaly. Mild atelectasis or infiltrate in the right lung base. No pleural effusion or pneumothorax. Normal central pulmonary vascularity. No acute osseous finding. IMPRESSION: 1. Mild atelectasis or infiltrate in the medial right lung base. 2. Cardiomegaly with normal central pulmonary vascularity. Dictated by: Dictated on workstation # [id number]
== END 2019-11-20 15:07 | disposition home or self-care (01) ==
LOC: EDUNIT# 13:30 → ER 13:31
DX: K29.70 Gastritis, unspecified, without bleeding (principal); K29.80 Duodenitis without bleeding; K21.9 Gastro-esophageal reflux disease without esophagitis; F32.9 Major depressive disorder, single episode, unspecified; K59.09 Other constipation
CPT/HCPCS: 36415; 71045; 80053; 83690; 83735; 83874; 84484; 85025; 85379; 85610; 85730; 93041

== ENCOUNTER → 2020-03-01 | Outpatient (CLI) | payer OTHER ==
[~2020-03-01] MED LIST changes: -ACET-2715 PO; +ACET-3075 PO; +SUCR1TAB36 PO
[2020-03-01 15:35] LABS: BASOPHILS % (AUTO) 0 % (0-10); EOSINOPHILS # (AUTO) 0.1 10^3/uL (0.0-0.3); EOSINOPHILS % (AUTO) 2 % (0-10); HEMATOCRIT 41 % (35-52); HEMOGLOBIN 13.3 g/dL (11.5-16.0); LYMPHOCYTES # (AUTO) 2.7 10^3/uL (1.0-4.0); LYMPHOCYTES % (AUTO) 30 % (12-44); MEAN CORPUSCULAR HEMOGLOBIN 30 pg (25-34); MEAN CORPUSCULAR HGB CONC 33 g/dL (32-36); MEAN CORPUSCULAR VOLUME 93 fL (80-99); MEAN PLATELET VOLUME 9.8 fL (9.0-12.2); MONOCYTES # (AUTO) 0.8 10^3/uL (0.0-1.0); MONOCYTES % (AUTO) 8 % (0-12); NEUTROPHILS # (AUTO) 5.3 10^3/uL (1.8-7.8); NEUTROPHILS % (AUTO) 60 % (42-75); PLATELET COUNT 266 10^3/uL (130-400)
[2020-03-01 15:51] LABS: ALANINE AMINOTRANSFERASE 25 U/L (0-55); ALBUMIN 3.9 GM/DL (3.2-4.5); ALKALINE PHOSPHATASE 58 U/L (40-136); BILIRUBIN,TOTAL 0.3 MG/DL (0.1-1.0); BUN/CREATININE RATIO 19; CALCIUM 9.1 MG/DL (8.5-10.1); CARBON DIOXIDE 22 MMOL/L (21-32); CHLORIDE 107 MMOL/L (98-107); CREATININE SERUM 0.83 MG/DL (0.60-1.30); GFR ESTIMATED > 60; GLUCOSE 96 MG/DL (70-105); POTASSIUM 4.2 MMOL/L (3.6-5.0); SODIUM 139 MMOL/L (135-145); TOTAL PROTEIN 7.2 GM/DL (6.4-8.2)
== END ==
LOC: LAB 14:59
PROVIDERS: ATTEND Nurse Practitioner Family
DX: R05 Cough (principal); R53.83 Other fatigue; R06.02 Shortness of breath
CPT/HCPCS: 36415; 80053; 85025; 85379; 86738

== ENCOUNTER → 2020-08-18 | Outpatient (CLI) | payer BC ==
--- NOTE | 2020-08-18 14:49 | Diagnostic Imaging Report ---
INDICATION: Routine screening. Comparison is made with prior mammogram 10/16/2018 and 09/23/2017. 2-D and 3-D bilateral screening mammography was performed with CAD. Both breasts are heterogeneously dense, limiting the sensitivity of mammography. Circumscribed nodules in the medial aspect of the right breast posterior depth again noted. These do appear to be slightly larger. These may represent enlarging cysts. No other masses are seen. No malignant appearing microcalcifications are identified. Axillae are unremarkable. IMPRESSION: BI-RADS 0 Slight increase in size of circumscribed nodular densities in the lower inner right breast posterior depth. These may represent enlarging cysts. Further evaluation with ultrasound is recommended. ACR BI-RADS Category 0: Incomplete. (Needs additional imaging evaluation). Result letter will be mailed to the patient. Note: At least 10% of breast cancer is not imaged by mammography. Dictated by: Dictated on workstation # [id number]
== END ==
LOC: RAD 10:06
PROVIDERS: ATTEND Family Medicine
DX: Z12.31 Encounter for screening mammogram for malignant neoplasm of breast (principal)
CPT/HCPCS: 77063; 77067

== ENCOUNTER 2020-11-17 09:59 | Emergency (ER) | payer BC ==
[~2020-11-17] VITALS: Ht 162.5 cm; Wt 91.6 kg
[2020-11-17] MEDS ORDERED: TEMA15CA (10:19)
[2020-11-17] MEDS ORDERED: BACL5TAB PO (10:19)
[2020-11-17] MEDS ORDERED: TRZ50T PO (10:19)
--- NOTE | 2020-11-17 10:28 | ED Cough/URI ---
General Chief Complaint: Respiratory Problems Stated Complaint: LUNG PAIN; COVID+ History of Present Illness Date Seen by Provider: Nov 17, 2020 Time Seen by Provider: 10:25 Initial Comments 55-year-old female presents with chest pain which began last night before going to bed. Located in the center of the chest without any associated symptoms she does have a slight cough, no fever or chills. No head congestion or drainage. No recent illness. Denies history of heart or lung problems. She is a non-s moker. Seen in the outpatient clinic today and as is now commonly the case, she was immediately swabbed for Covid (presenting with chest pain), told she was positive and sent to the ER. Allergies and Home Medications Allergies Coded Allergies: No Known Drug Allergies (Unverified , 08/07/18) Home Medications Baclofen 5 Mg Tablet, 5 MG PO TID PRN for MUSCLE SPASMS, (Reported) Last Action: New Order Citalopram Hydrobromide 40 Mg Tablet, 40 MG PO DAILY, (Reported) Last Action: Reviewed Trazodone HCl 50 Mg Tablet, 50 MG PO HS, (Reported) Last Action: New Order Patient Home Medication List Home Medication List Reviewed: Yes Review of Systems Review of Systems Constitutional: No chills, No fever, No malaise, No weakness EENTM: no symptoms reported Respiratory: cough; No short of breath Cardiovascular: chest pain; No edema, No Hx of Intervention, No palpitations, No syncope, No vascular heart diseas Gastrointestinal: No abdominal pain, No constipation, No diarrhea, No loss of appetite, No nausea, No vomiting Musculoskeletal: No back pain, No joint pain, No muscle pain Skin: No change in color, No rash Past Sgmipqv-Syjtas-Klrwem Hx Patient Social History Tobacco Use?: No Seasonal Allergies Seasonal Allergies: No Past Medical History Surgeries: Yes (BREAST REDUCTION, CTR, KIDNEY DONaTION) Orthopedic Respiratory: No Cardiac: No Neurological: No Sexually Transmitted Disease: No HIV/AIDS: No Genitourinary: No Gastrointestinal: Yes Gastroesophageal Reflux, Chronic Constipation, Gall Bladder Disease Musculoskeletal: Yes (BACK) Arthritis Endocrine: No HEENT: Yes (GLASSES) Loss of Vision: Bilateral Hearing Impairment: Denies Cancer: No Psychosocial: Yes Depression Integumentary: No Blood Disorders: No Adverse Reaction/Blood Tranf: No (N/A) Physical Exam Vital Signs - First Documented 11/17/20 10:10 Temp 36.2 Pulse 61 Resp 18 B/P (MAP) 171/84 (113) O2 Delivery Room Air Capillary Refill : Height: 5'4.00" Weight: 204lbs. 0.0oz. 92.276175qp; 34.00 BMI Method: General Appearance: WD/WN, no apparent distress HEENT: PERRL/EOMI, normal ENT inspection Neck: non-tender, supple Respiratory: chest non-tender, lungs clear, normal breath sounds, no respiratory distress, no accessory muscle use Cardiovascular: regular rate, rhythm, no edema, no JVD Gastrointestinal: non tender, soft Extremities: normal range of motion, non-tender, normal inspection, no pedal edema Neurologic/Psychiatric: no motor/sensory deficits, alert, normal mood/affect, oriented x 3 Skin: normal color, warm/dry Progress/Results/Core Measures Suspected Sepsis SIRS Temperature: Pulse: Respiratory Rate: Laboratory Tests 11/17/20 10:35: White Blood Count 8.0 Blood Pressure / Mean: Laboratory Tests 11/17/20 10:35: Creatinine 0.84, Platelet Count 255, Total Bilirubin 0.3 Results/Orders Lab Results Laboratory Tests Test 11/17/20 10:35 Range/Units White Blood Count 8.0 4.3-11.0 10^3/uL Red Blood Count 4.06 3.80-5.11 10^6/uL Hemoglobin 12.6 11.5-16.0 g/dL Hematocrit 38 35-52 % Mean Corpuscular Volume 93 80-99 fL Mean Corpuscular Hemoglobin 31 25-34 pg Mean Corpuscular Hemoglobin Concent 34 32-36 g/dL Red Cell Distribution Width 13.1 10.0-14.5 % Platelet Count 255 130-400 10^3/uL Mean Platelet Volume 10.3 9.0-12.2 fL Immature Granulocyte % (Auto) 0 % Neutrophils (%) (Auto) 63 42-75 % Lymphocytes (%) (Auto) 28 12-44 % Monocytes (%) (Auto) 7 0-12 % Eosinophils (%) (Auto) 1 0-10 % Basophils (%) (Auto) 1 0-10 % Neutrophils # (Auto) 5.0 1.8-7.8 X 10^3 Lymphocytes # (Auto) 2.3 1.0-4.0 X 10^3 Monocytes # (Auto) 0.6 0.0-1.0 X 10^3 Eosinophils # (Auto) 0.1 0.0-0.3 10^3/uL Basophils # (Auto) 0.1 0.0-0.1 10^3/uL Immature Granulocyte # (Auto) 0.0 0.0-0.1 10^3/uL Sodium Level 138 135-145 MMOL/L Potassium Level 4.4 3.6-5.0 MMOL/L Chloride Level 105 98-107 MMOL/L Carbon Dioxide Level 26 21-32 MMOL/L Anion Gap 7 5-14 MMOL/L Blood Urea Nitrogen 12 7-18 MG/DL Creatinine 0.84 0.60-1.30 MG/DL Estimat Glomerular Filtration Rate 70 BUN/Creatinine Ratio 14 Glucose Level 92 70-105 MG/DL Calcium Level 9.4 8.5-10.1 MG/DL Corrected Calcium 9.3 8.5-10.1 MG/DL Total Bilirubin 0.3 0.1-1.0 MG/DL Aspartate Amino Transf (AST/SGOT) 18 5-34 U/L Alanine Aminotransferase (ALT/SGPT) 23 0-55 U/L Alkaline Phosphatase 71 40-136 U/L Troponin I < 0.30 <0.30 NG/ML Total Protein 7.0 6.4-8.2 GM/DL Albumin 4.1 3.2-4.5 GM/DL My Orders Orders - ROVENSTINENAEL DO Ed Iv/Invasive Line Start (11/17/20 10:28) Chest 1 View Ap/Pa Only (11/17/20 10:28) Ekg Tracing (11/17/20 10:28) Troponin I Fs (11/17/20 10:28) Cbc With Automated Diff (11/17/20 10:28) Comprehensive Metabolic Panel (11/17/20 10:28) Vital Signs/I&O 11/17/20 10:10 Temp 36.2 Pulse 61 Resp 18 B/P (MAP) 171/84 (113) O2 Delivery Room Air Capillary Refill : ECG Initial ECG Impression Date: Nov 17, 2020 Initial ECG Impression Time: 10:30 Initial ECG Rate: 60 Initial ECG Rhythm: Normal Sinus Initial ECG Intervals: Normal Initial ECG Impression: Normal Initial ECG Comparisson: No Previous ECG Available Diagnostic Imaging Diagonstic Imaging: Xray Plain Films/CT/US/NM/MRI: chest Comments Date of Exam:11/17/20 CHEST 1 VIEW AP/PA ONLY INDICATION: Shortness of breath, cough COMPARISON: 11/20/2019 single view the chest demonstrates cardiac enlargement without overt pulmonary edema or focal infiltrate. There was no pneumothorax or effusion. Osseous structures normal. IMPRESSION: Stable cardiac enlargement without pulmonary edema or acute infiltrate. Dictated on workstation # [id number] Dict: 11/17/20 1053 Trans: 11/17/[address] [facility] [id number] Interpreted by: YIFAN ODEN Electronically signed by: Departure Impression Primary Impression: Chest pain Qualified Codes: R07.9 - Chest pain, unspecified Disposition: HOME, SELF-CARE Condition: Stable Departure-Patient Inst. Decision time for Depature: 11:34 Referrals: SADE CABALLERO DO (PCP/Family) Primary Care Physician Patient Instructions: Chest Pain (DC) Add. Discharge Instructions: Call Dr Caballero today to let him know that we are recommending you have a "STRESS TEST" scheduled soon. If you have persistent or worsening chest pain or you develop any shortness of air, return to the nearest ER All discharge instructions reviewed with patient and/or family. Voiced understanding. NAEL AGUILAR DO Nov 17, 2020 10:28
[2020-11-17 10:46] LABS: HEMATOCRIT 38 % (35-52); HEMOGLOBIN 12.6 g/dL (11.5-16.0); MEAN CORPUSCULAR HEMOGLOBIN 31 pg (25-34); MEAN CORPUSCULAR HGB CONC 34 g/dL (32-36); MEAN CORPUSCULAR VOLUME 93 fL (80-99); MEAN PLATELET VOLUME 10.3 fL (9.0-12.2); PLATELET COUNT 255 10^3/uL (130-400)
[2020-11-17 10:47] LABS: BASOPHILS % (AUTO) 1 % (0-10); EOSINOPHILS % (AUTO) 1 % (0-10); LYMPHOCYTES % (AUTO) 28 % (12-44); MONOCYTES % (AUTO) 7 % (0-12); NEUTROPHILS % (AUTO) 63 % (42-75)
[2020-11-17 10:48] LABS: BASOPHILS # (AUTO) 0.1 10^3/uL (0.0-0.1); EOSINOPHILS # (AUTO) 0.1 10^3/uL (0.0-0.3); LYMPHOCYTES # (AUTO) 2.3 X 10^3 (1.0-4.0); MONOCYTES # (AUTO) 0.6 X 10^3 (0.0-1.0)
--- NOTE | 2020-11-17 10:59 | Diagnostic Imaging Report ---
INDICATION: Shortness of breath, cough COMPARISON: 11/20/2019 single view the chest demonstrates cardiac enlargement without overt pulmonary edema or focal infiltrate. There was no pneumothorax or effusion. Osseous structures normal. IMPRESSION: Stable cardiac enlargement without pulmonary edema or acute infiltrate. Dictated by: Dictated on workstation # [id number]
--- OUTSIDE RECORDS SUMMARY | 2020-11-17 11:02 | XMS REPORT | Clinical Summary ---
Author Author [facility] Organization [facility] Address Unknown Phone Unavailable Care Team Providers Care Facility Planner Name Role Phone PCP Unavailable Allergies Not on File Medications Not on file Active Problems Not on file Social History Date Tobacco Use Types Packs/Day Years Used Never Assessed Sex Assigned at Date Recorded Not on file Last Filed Vital Signs Not on file Plan of Treatment Not on file Results Not on filefrom Last 3 Months
[2020-11-17 11:25] LABS: BUN/CREATININE RATIO 14; CARBON DIOXIDE 26 MMOL/L (21-32); CHLORIDE 105 MMOL/L (98-107); CREATININE SERUM 0.84 MG/DL (0.60-1.30); GFR ESTIMATED 70; GLUCOSE 92 MG/DL (70-105); POTASSIUM 4.4 MMOL/L (3.6-5.0); SODIUM 138 MMOL/L (135-145)
[2020-11-17 11:26] LABS: ALANINE AMINOTRANSFERASE 23 U/L (0-55); ALBUMIN 4.1 GM/DL (3.2-4.5); ALKALINE PHOSPHATASE 71 U/L (40-136); BILIRUBIN,TOTAL 0.3 MG/DL (0.1-1.0); CALCIUM 9.4 MG/DL (8.5-10.1)
[2020-11-17 12:00] VITALS: BP 132/105
== END 2020-11-17 12:00 | disposition home or self-care (01) ==
LOC: EDUNIT# 09:59 → ER FS 10:03
DX: U07.1 COVID-19 (principal); F32.9 Major depressive disorder, single episode, unspecified; Z79.899 Other long term (current) drug therapy
CPT/HCPCS: 36415; 71045; 80053; 84484; 85025; 93005

== ENCOUNTER 2021-09-03 14:36 | Emergency (ER) | payer BC ==
[~2021-09-03] VITALS: Ht 162.6 cm; Wt 90.7 kg
[~2021-09-03 14:36] MED LIST changes: +BACL5TAB PO; -CITA40TA11 PO; +CITA40TA13 PO; +TEMA15CA; +TRZ50T PO
[2021-09-03] MEDS ORDERED: NS IV 1000 ML 1,000 ML IV STA (14:55)
--- NOTE | 2021-09-03 15:04 | ED General ---
General Chief Complaint: Respiratory Problems Stated Complaint: SOB; LIGHT-HEADED; ABN LABS Source of Information: Patient History of Present Illness Date Seen by Provider: Sep 03, 2021 Time Seen by Provider: 14:37 Initial Comments 56-year-old female presenting with complaints of feeling lightheaded and jittery today. She was feeling like she had trouble trying to catch her breath. She had gone to the urgent care clinic for [facility] and the nurse practitioner there had obtained a urinalysis and told her that her kidneys were shutting down because she had protein in her urine. Patient became very concerned and upset about that and they referred her to the emergency department for evaluation. There was no call or notification from urgent care that they were sending the patient to the emergency department. The patient states that they were also concerned because she had a bad headache last week and today she was having trouble following the finger of the nurse practitioner at the clinic. When she was trying to test her vision and gaze. She denies having a headache now. She has no numbness or tingling in her arms or legs. She has had some intermittent nausea and loose stool since Friday. She has had no chest pain, cough, fever, chills. Severity: Moderate Associated Systoms: No Chest Pain, No Cough, No Diaphoresis, No Fever/Chills; Headaches (Last week had a bad headache while at work); No Loss of Appetite; Malaise, Nausea/Vomiting (Nausea and upset stomach since Friday but no vomiting); No Rash, No Seizure; Shortness of Air ([place] like she could not catch her breath today); No Syncope, No Weakness Allergies and Home Medications Allergies Coded Allergies: No Known Drug Allergies (Unverified , 08/07/18) Patient Home Medication List Home Medication List Reviewed: Yes Baclofen (Baclofen) 5 Mg Tablet, 5 MG PO TID PRN for MUSCLE SPASMS, (Reported) Entered as Reported by: LALO MATOS on 11/17/20 1019 Citalopram Hydrobromide (Citalopram HBr) 40 Mg Tablet, 40 MG PO DAILY, (Reported) Entered as Reported by: DARRICK BARBER on 07/10/18 1120 Temazepam (Temazepam) 15 Mg Capsule, (Reported) Entered as Reported by: LALO MATOS on 11/17/20 1019 Trazodone HCl (Trazodone HCl) 50 Mg Tablet, 50 MG PO HS, (Reported) Entered as Reported by: LALO MATOS on 11/17/20 1019 Review of Systems Review of Systems Constitutional: see HPI EENTM: no symptoms reported Respiratory: see HPI Cardiovascular: see HPI; No chest pain Gastrointestinal: see HPI, diarrhea, nausea; No vomiting Genitourinary: No decreased output, No dysuria Musculoskeletal: no symptoms reported Skin: No rash Psychiatric/Neurological: See HPI, Anxiety Hematologic/Lymphatic: No Symptoms Reported Immunological/Allergic: no symptoms reported Past Zfaafoo-Cqarjd-Ezcvhr Hx Patient Social History Tobacco Use?: No Smoking Status: Never a Smoker Smokeless Tobacco Frequency: Never a User Use of E-Cig and/or Vaping dev: No Use of E-Cig and/or Vaping Humberto: Never a User Substance use?: No Alcohol Use?: No Pt feels they are or have been: No Seasonal Allergies Seasonal Allergies: No Past Medical History Surgery/Hospitalization HX: chronic back pain/spinal stenosis, HTN, BUTCH w/ CPAP, Dvrtclos, benign polyps, obesity, Single Kidney Surgeries: Yes (BREAST REDUCTION, CTR, KIDNEY DONaTION) Orthopedic Respiratory: No Cardiac: No Neurological: No Sexually Transmitted Disease: No HIV/AIDS: No Genitourinary: No Gastrointestinal: Yes Gastroesophageal Reflux, Chronic Constipation, Gall Bladder Disease Musculoskeletal: Yes (BACK) Arthritis Endocrine: No HEENT: Yes (GLASSES) Loss of Vision: Bilateral Hearing Impairment: Denies Cancer: No Psychosocial: Yes Depression Integumentary: No Blood Disorders: No Adverse Reaction/Blood Tranf: No (N/A) Physical Exam Vital Signs Vital Signs - First Documented 09/03/21 17:30 Pulse Ox 94 Capillary Refill : Height, Weight, BMI Height: 5'4.00" Weight: 204lbs. 0.0oz. 92.283267hp; 34.00 BMI Method: General Appearance: WD/WN, Anxious HEENT: PERRL/EOMI, Pharynx Normal Neck: Full Range of Motion, Normal Inspection, Non Tender, Supple Respiratory: Chest Non Tender, Lungs Clear, Normal Breath Sounds, No Accessory Muscle Use, No Respiratory Distress Cardiovascular: Regular Rate, Rhythm, No Murmur, Normal Peripheral Pulses Gastrointestinal: Normal Bowel Sounds, No Pulsatile Mass, Non Tender, Soft Rectal: Deferred Extremity: Normal Capillary Refill, Normal Inspection, No Pedal Edema Neurologic/Psychiatric: Alert, Oriented x3, hotel registration clerk II-XII Norm as Tested, Other (Patient seems anxious) Skin: Normal Color, Warm/Dry Progress/Results/Core Measures Suspected Sepsis SIRS Temperature: Pulse: Respiratory Rate: Laboratory Tests 09/03/21 14:53: White Blood Count 9.2 Blood Pressure / Mean: Laboratory Tests 09/03/21 14:53: Creatinine 0.81, Platelet Count 258, Total Bilirubin 0.4 Results/Orders Lab Results Laboratory Tests Test 09/03/21 14:42 09/03/21 14:53 Range/Units Urine Color YELLOW Urine Clarity CLEAR Urine pH 6.0 5-9 Urine Specific [place] 1.020 1.016-1.022 Urine Protein 1+ H NEGATIVE Urine Glucose (UA) NEGATIVE NEGATIVE Urine Ketones NEGATIVE NEGATIVE Urine Nitrite NEGATIVE NEGATIVE Urine Bilirubin NEGATIVE NEGATIVE Urine Urobilinogen 0.2 < = 1.0 MG/DL Urine Leukocyte Esterase NEGATIVE NEGATIVE Urine RBC (Auto) NEGATIVE NEGATIVE Urine RBC NONE /HPF Urine WBC 0-2 /HPF Urine Crystals NONE /LPF Urine Bacteria NEGATIVE /HPF Urine Casts NONE /LPF Urine Mucus NEGATIVE /LPF Urine Culture Indicated NO Urine Opiates Screen NEGATIVE NEGATIVE Urine Oxycodone Screen NEGATIVE NEGATIVE Urine Methadone Screen NEGATIVE NEGATIVE Urine Propoxyphene Screen NEGATIVE NEGATIVE Urine Barbiturates Screen NEGATIVE NEGATIVE Ur Tricyclic Antidepressants Screen NEGATIVE NEGATIVE Urine Phencyclidine Screen NEGATIVE NEGATIVE Urine Amphetamines Screen NEGATIVE NEGATIVE Urine Methamphetamines Screen NEGATIVE NEGATIVE Urine Benzodiazepines Screen NEGATIVE NEGATIVE Urine Cocaine Screen NEGATIVE NEGATIVE Urine Cannabinoids Screen NEGATIVE NEGATIVE White Blood Count 9.2 4.3-11.0 10^3/uL Red Blood Count 4.40 3.80-5.11 10^6/uL Hemoglobin 13.6 11.5-16.0 g/dL Hematocrit 40 35-52 % Mean Corpuscular Volume 90 80-99 fL Mean Corpuscular Hemoglobin 31 25-34 pg Mean Corpuscular Hemoglobin Concent 34 32-36 g/dL Red Cell Distribution Width 13.8 10.0-14.5 % Platelet Count 258 130-400 10^3/uL Mean Platelet Volume 10.0 9.0-12.2 fL Immature Granulocyte % (Auto) 1 % Neutrophils (%) (Auto) 59 42-75 % Lymphocytes (%) (Auto) 32 12-44 % Monocytes (%) (Auto) 7 0-12 % Eosinophils (%) (Auto) 1 0-10 % Basophils (%) (Auto) 0 0-10 % Neutrophils # (Auto) 5.5 1.8-7.8 10^3/uL Lymphocytes # (Auto) 2.9 1.0-4.0 10^3/uL Monocytes # (Auto) 0.6 0.0-1.0 10^3/uL Eosinophils # (Auto) 0.1 0.0-0.3 10^3/uL Basophils # (Auto) 0.0 0.0-0.1 10^3/uL Immature Granulocyte # (Auto) 0.1 0.0-0.1 10^3/uL Sodium Level 141 135-145 MMOL/L Potassium Level 4.0 3.6-5.0 MMOL/L Chloride Level 107 98-107 MMOL/L Carbon Dioxide Level 22 21-32 MMOL/L Anion Gap 12 5-14 MMOL/L Blood Urea Nitrogen 18 7-18 MG/DL Creatinine 0.81 0.60-1.30 MG/DL Estimat Glomerular Filtration Rate 85 BUN/Creatinine Ratio 22 Glucose Level 115 H 70-105 MG/DL Calcium Level 9.6 8.5-10.1 MG/DL Corrected Calcium 9.2 8.5-10.1 MG/DL Total Bilirubin 0.4 0.1-1.0 MG/DL Aspartate Amino Transf (AST/SGOT) 18 5-34 U/L Alanine Aminotransferase (ALT/SGPT) 23 0-55 U/L Alkaline Phosphatase 78 40-136 U/L C-Reactive Protein < 0.30 <0.50 MG/DL Pro-B-Type Natriuretic Peptide 100.9 H <75.0 PG/ML Total Protein 8.0 6.4-8.2 GM/DL Albumin 4.5 3.2-4.5 GM/DL My Orders Orders - AUBREE APODACA MD Cbc With Automated Diff (09/03/21 14:55) Comprehensive Metabolic Panel (09/03/21 14:55) Chest Pa/Lat (2 View) (09/03/21 14:55) Ekg Tracing (09/03/21 14:55) Ed Iv/Invasive Line Start (09/03/21 14:55) Monitor-Rhythm Ecg Trace Only (09/03/21 14:55) Crp Fs (09/03/21 14:55) Probnp Fs (09/03/21 14:55) Ua Culture If Indicated (09/03/21 14:55) Drug Screen Stat (Urine) (09/03/21 14:55) Ct Head Wo (09/03/21 14:55) Ns Iv 1000 Ml (Sodium Chloride 0.9%) (09/03/21 14:55) Vital Signs/I&O 09/03/21 09/03/21 09/03/21 14:42 14:42 17:30 Temp 37.1 Pulse 79 78 Resp 20 16 B/P (MAP) 138/80 (99) 139/81 Pulse Ox 94 O2 Delivery Room Air Room Air Room Air Capillary Refill : Progress Note #1: Progress Note Review of the note from urgent care showed that she had elevated specific gravity for dehydration and some protein in her urine. Otherwise no abnormality on the UA. Advised patient that we could start over and do general testing here to see if anything showed up to account for her symptoms. Otherwise she may need to follow-up through the clinic with her primary provider, Elsa VELASQUEZ APRN at [place]. Progress Note #2: Time: 15:32 Progress Note CBC and chemistry appear stable without acute significant abnormality. The u rinalysis still shows 1+ protein in the urine. Specific gravity has improved from urgent care where it was greater than 1.030 and now it is 1.020. No sign of infection on the urinalysis. The chemistry panel shows BUN and creatinine are normal. Electrocardiogram does not show any acute process. The chest x-ray and CT had also did not show any acute process to explain her shortness of breath or feeling dizzy and lightheaded. Some of this may be more anxiety or nerves but currently not show any signs of stroke, heart failure, myocardial infarction, pneumonia, pulmonary edema, UTI. Reassured patient and counseled to drink more fluids and stay better hydrated. Check back through clinic about the protein showing up in the urine. ECG Initial ECG Impression Date: Sep 03, 2021 Initial ECG Impression Time: 15:21 Initial ECG Rate: 72 Initial ECG Rhythm: Normal Sinus Initial ECG Comparisson: Unchanged Comment Normal sinus rhythm with a heart rate of 72 bpm. CO interval 116 ms. She does have relatively small P waves on the tracing. QT interval 405 ms with a QTc interval 429 ms. There is no acute ST elevation. Overall appears similar to prior tracings in the system. Diagnostic Imaging Diagonstic Imaging: CT Plain Films/CT/US/NM/MRI: head Comments NAME: OLAMIDE BARBER [facility] REC#: [id number] PT STATUS: REG ER : 1965 PHYSICIAN: AUBREE APODACA MD ADMIT DATE: 09/03/21/ER FS Draft Date of Exam:09/03/21 CT HEAD WO INDICATION: Headache and dizziness. TECHNIQUE: Multiple contiguous axial images were obtained through the brain without the use of intravenous contrast. Auto Exposure Controls were utilized during the CT exam to meet ALARA standards for radiation dose reduction. COMPARISON: There is no prior study for comparison. FINDINGS: There are no extra-axial fluid collections. No intracranial hemorrhage. No intracranial mass or mass effect. No midline shift. The ventricles are normal in size and position. There were no focal parenchymal abnormalities in the brain. Calvarial windows are unremarkable. IMPRESSION: Negative noncontrast brain CT. Dictated on workstation # [id number] Dict: 09/03/21 1523 Trans: 09/03/21 1529 [id number] Interpreted by: CARSON RODRIGUEZ MD Electronically signed by: Reviewed: Reviewed by Me Diagonstic Imaging: Xray Plain Films/CT/US/NM/MRI: chest Comments [facility] [place] NAME: OLAMIDE BARBER [facility] REC#: [id number] PT STATUS: REG ER : 1965 PHYSICIAN: AUBREE APODACA MD ADMIT DATE: 09/03/21/ER FS Draft Date of Exam:09/03/21 CHEST PA/LAT (2 VIEW) INDICATION: Shortness of breath. TECHNIQUE: PA and lateral views were obtained. FINDINGS: The heart size, mediastinal configuration, and pulmonary vascularity are within normal limits. There is no pleural effusion, pneumothorax, or pneumonia. The osseous structures are unremarkable. IMPRESSION: No acute cardiopulmonary abnormality. Dictated on workstation # [id number] Dict: 09/03/21 1515 Trans: 09/03/21 1519 [id number] Interpreted by: LAISHA HERNANDEZ MD Electronically signed by: Reviewed: Reviewed by Me Departure Impression Primary Impression: Dehydration Additional Impressions: Shortness of breath Proteinuria Qualified Codes: R80.9 - Proteinuria, unspecified Disposition: 01 HOME, SELF-CARE Condition: Stable Departure-Patient Inst. Decision time for Depature: 17:22 Referrals: SADE CABALLERO DO (PCP) Primary Care Physician Patient Instructions: Shortness of Breath, Adult ED, Dehydration, Adult ED Add. Discharge Instructions: Stay well-hydrated and drink plenty of fluids and water. Avoid carbonated and caffeinated drinks. Your test today did not show signs of pneumonia, heart failure, stroke, mass or tumor. The blood work showed that your kidney is functioning okay and no indication of kidney failure. You may still want to have a 24 hour urine test to look and see how much protein is showing up in your urine. Check with Nurse Practitioner Elsa Velasquez about whether they want to refer you to Nephrology (Kidney specialist) All discharge instructions reviewed with patient and/or family. Voiced understanding. Work/School Note: Work Release Form Date Seen in the Emergency Department: Sep 03, 2021 Return to Work: Sep 04, 2021 Restrictions: No Restrictions Other Restrictions Listed Below: Stay well hydrated and drink plenty of water AUBREE APODACA MD Sep 03, 2021 15:04
[2021-09-03 15:08] LABS: BILIRUBIN,URINE NEGATIVE (NEGATIVE); CLARITY,URINE CLEAR; COLOR,URINE YELLOW; GLUCOSE, URINE (UA) NEGATIVE (NEGATIVE); KETONES,URINE NEGATIVE (NEGATIVE); LEUKOCYTE ESTERASE ,URINE NEGATIVE (NEGATIVE); NITRITE,URINE NEGATIVE (NEGATIVE); PROTEIN,URINE 1+ (NEGATIVE)
--- NOTE | 2021-09-03 15:19 | Diagnostic Imaging Report ---
INDICATION: Shortness of breath. TECHNIQUE: PA and lateral views were obtained. FINDINGS: The heart size, mediastinal configuration, and pulmonary vascularity are within normal limits. There is no pleural effusion, pneumothorax, or pneumonia. The osseous structures are unremarkable. IMPRESSION: No acute cardiopulmonary abnormality. Dictated by: Dictated on workstation # [id number]
[2021-09-03 15:20] LABS: BASOPHILS % (AUTO) 0 % (0-10); EOSINOPHILS # (AUTO) 0.1 10^3/uL (0.0-0.3); EOSINOPHILS % (AUTO) 1 % (0-10); HEMATOCRIT 40 % (35-52); HEMOGLOBIN 13.6 g/dL (11.5-16.0); LYMPHOCYTES # (AUTO) 2.9 10^3/uL (1.0-4.0); LYMPHOCYTES % (AUTO) 32 % (12-44); MEAN CORPUSCULAR HEMOGLOBIN 31 pg (25-34); MEAN CORPUSCULAR HGB CONC 34 g/dL (32-36); MEAN CORPUSCULAR VOLUME 90 fL (80-99); MONOCYTES # (AUTO) 0.6 10^3/uL (0.0-1.0); MONOCYTES % (AUTO) 7 % (0-12); NEUTROPHILS # (AUTO) 5.5 10^3/uL (1.8-7.8); NEUTROPHILS % (AUTO) 59 % (42-75); PLATELET COUNT 258 10^3/uL (130-400); WHITE BLOOD COUNT 9.2 10^3/uL (4.3-11.0)
[2021-09-03 15:24] LABS: BACTERIA,URINE NEGATIVE /HPF; WBC,URINE 0-2 /HPF
[2021-09-03 15:25] LABS: AMPHETAMINE SCREEN, URINE NEGATIVE (NEGATIVE); BARBITURATE SCREEN URINE NEGATIVE (NEGATIVE); BENZODIAZEPINES SCREEN URINE NEGATIVE (NEGATIVE); CANNABINOID SCREEN, URINE NEGATIVE (NEGATIVE); COCAINE SCREEN URINE NEGATIVE (NEGATIVE); METHADONE STAT NEGATIVE (NEGATIVE); OPIATE SCREEN URINE NEGATIVE (NEGATIVE); OXYCODONE STAT NEGATIVE (NEGATIVE); PROPOXYPHENE STAT NEGATIVE (NEGATIVE); TRICYCLIC ANTIDEPRESSANTS SCRE NEGATIVE (NEGATIVE)
[2021-09-03 15:26] LABS: ALANINE AMINOTRANSFERASE 23 U/L (0-55); ALKALINE PHOSPHATASE 78 U/L (40-136); BILIRUBIN,TOTAL 0.4 MG/DL (0.1-1.0); BUN/CREATININE RATIO 22; CALCIUM 9.6 MG/DL (8.5-10.1); CARBON DIOXIDE 22 MMOL/L (21-32); CHLORIDE 107 MMOL/L (98-107); CREATININE SERUM 0.81 MG/DL (0.60-1.30); GFR ESTIMATED 85; GLUCOSE 115 MG/DL (70-105); SODIUM 141 MMOL/L (135-145)
[2021-09-03 15:27] LABS: ALBUMIN 4.5 GM/DL (3.2-4.5)
--- NOTE | 2021-09-03 15:30 | Diagnostic Imaging Report ---
INDICATION: Headache and dizziness. TECHNIQUE: Multiple contiguous axial images were obtained through the brain without the use of intravenous contrast. Auto Exposure Controls were utilized during the CT exam to meet ALARA standards for radiation dose reduction. COMPARISON: There is no prior study for comparison. FINDINGS: There are no extra-axial fluid collections. No intracranial hemorrhage. No intracranial mass or mass effect. No midline shift. The ventricles are normal in size and position. There were no focal parenchymal abnormalities in the brain. Calvarial windows are unremarkable. IMPRESSION: Negative noncontrast brain CT. Dictated by: Dictated on workstation # [id number]
[2021-09-03 17:30] VITALS: BP 139/81
== END 2021-09-03 17:31 | disposition home or self-care (01) ==
LOC: EDUNIT# 14:36 → ER FS 14:38
DX: R06.02 Shortness of breath (principal); E86.0 Dehydration; R80.9 Proteinuria, unspecified; E66.9 Obesity, unspecified; G47.33 Obstructive sleep apnea (adult) (pediatric); Z68.34 Body mass index [BMI] 34.0-34.9, adult; Z99.89 Dependence on other enabling machines and devices
CPT/HCPCS: 36415; 70450; 71046; 80053; 80306; 81000; 83880; 85025; 86141; 93005; 93041

== ENCOUNTER → 2021-11-02 | Outpatient (CLI) | payer BC ==
--- NOTE | 2021-11-02 17:12 | Diagnostic Imaging Report ---
PROCEDURE: MRI left joint lower extremity without contrast. TECHNIQUE: Multiplanar, multisequence non contrast-enhanced MRI of the left lower extremity was accomplished. INDICATION: Left hip pain. COMPARISON: None. FINDINGS: No acute fracture is seen in the pelvis or left hip. Alignment appears normal with the femoral heads well-seated in the acetabula. There is no significant joint effusion. The sacroiliac joints appear intact. There is transitional anatomy at the lumbosacral junction with hemisacralization of L5. Image quality is suboptimal due to increased noise, particularly on the small [id number] hip images. The labrum is not well seen on these images without intra-articular contrast. But no paralabral cyst is seen. The iliopsoas tendon appears intact. The gluteus minimus tendon demonstrates mild tendinopathy with no tear. The gluteus medius tendon demonstrates low-grade partial tearing with a subgluteal bursitis. The left hamstring tendon origin demonstrates moderate tendinopathy with an ischial bursitis. Similar findings are seen at the right hamstring tendon origin. No soft tissue masses or fluid collections are seen. No focal muscular atrophy is seen. There is mild edema in the paraspinous musculature. There is no lymphadenopathy. Nabothian cysts are noted at the cervix. There is diverticulosis of the sigmoid colon without diverticulitis seen. IMPRESSION: 1. Low-grade partial tearing with subacromial bursitis of the left gluteus medias tendon. 2. Tendinopathy of the hamstring tendon origin with ischial bursitis. 3. Transitional anatomy at the lumbosacral junction. Dictated on workstation # [id number]
== END ==
LOC: RAD 14:45
PROVIDERS: ATTEND Nurse Practitioner
DX: M70.72 Other bursitis of hip, left hip (principal); M67.854 Other specified disorders of tendon, left hip
CPT/HCPCS: 73721

== ENCOUNTER 2022-02-07 11:10 | Emergency (ER) | payer BC ==
[~2022-02-07] VITALS: Ht 162.5 cm; Wt 95.1 kg
--- NOTE | 2022-02-07 11:39 | ED GI ---
General Chief Complaint: Abdominal/GI Problems Stated Complaint: CONSTIPATION Nursing Triage Note: PT AMB TO ED BY SAMANTHA GAVIN C/O CONSTIPATION. PT REPORTS SHE HAS TRIED TAKING STOOL SOFTENERS, MIRALAX, AND ENEMAS WITH NO SUCCESS. LAST NORMAL BM WAS 2 WEEKS AGO. REPORTS ABD PAIN AND NAUSEA. PT HAD INCREASE IN HYDROCODONE FROM 5MG TO 10MG SHORTLY BEFORE CONSTIPATION BEGAN. Source of Information: Patient Exam Limitations: No Limitations History of Present Illness Date Seen by Provider: Feb 07, 2022 Time Seen by Provider: 11:30 Initial Comments Patient is a 56-year-old female who presents to the emergency room with a chief complaint of constipation. Patient takes chronic pain medications, hydrocodone. She has been using multiple tscz-clq-tsqcinr constipation remedies including Miralax once daily, fleets enemas and stool softeners. No fevers or chills. No nausea or vomiting. No problems with urination. Has been able to pass only very tiny amounts of stool. Last normal bowel movement was 2 weeks prior to this visit. All other review of systems reviewed and negative except as stated. Timing/Duration: Other (2 weeks) Severity/Quality: Moderate, Aching, Cramping Location: Generalized Abdomen Radiation: No Radiation Associated Symptoms: Heartburn, Nausea/Vomiting, Shortness of Air Allergies and Home Medications Allergies Coded Allergies: No Known Drug Allergies (Unverified , 08/07/18) Patient Home Medication List Home Medication List Reviewed: Yes Baclofen (Baclofen) 5 Mg Tablet, 5 MG PO TID PRN for MUSCLE SPASMS, (Reported) Entered as Reported by: LALO MATOS on 11/17/20 1019 Citalopram Hydrobromide (Citalopram HBr) 40 Mg Tablet, 40 MG PO DAILY, (Reported) Entered as Reported by: DARRICK BARBER on 07/10/18 1120 Peg/Electrolytes (Golytely Solution) 236-22.74G Soln, 4,000 ML PO ONCE Prescribed by: SUKUMAR BEJARANO on 02/07/22 1331 Temazepam (Temazepam) 15 Mg Capsule, (Reported) Entered as Reported by: LALO MATOS on 11/17/20 1019 Trazodone HCl (Trazodone HCl) 50 Mg Tablet, 50 MG PO HS, (Reported) Entered as Reported by: LALO MATOS on 11/17/20 1019 Review of Systems Review of Systems Constitutional: see HPI EENTM: No Symptoms Reported Respiratory: Shortness of Air Cardiovascular: No Symptoms Reported Gastrointestinal: Abdominal Pain, Constipated Genitourinary: No Symptoms Reported Musculoskeletal: no symptoms reported Skin: no symptoms reported Psychiatric/Neurological: No Symptoms Reported Endocrine: No Symptoms Reported All Other Systems Reviewed Negative Unless Noted: Yes Past Uifnvvi-Ebqxoz-Bxivti Hx Patient Social History Tobacco Use?: No Use of E-Cig and/or Vaping dev: No Substance use?: No Alcohol Use?: No Pt feels they are or have been: No Immunizations Up To Date Influenza Vaccine Up-to-Date: No; Not Current Seasonal Allergies Seasonal Allergies: No Past Medical History Surgery/Hospitalization HX: chronic back pain/spinal stenosis, HTN, BUTCH w/ CPAP, Dvrtclos, benignpolyps,obesity, Single Kidney Surgeries: Yes (BREAST REDUCTION, CTR, KIDNEY DONaTION) Orthopedic Respiratory: No Cardiac: No Neurological: No Sexually Transmitted Disease: No HIV/AIDS: No Genitourinary: No Gastrointestinal: Yes Gastroesophageal Reflux, Chronic Constipation, Gall Bladder Disease Musculoskeletal: Yes (BACK) Arthritis Endocrine: No HEENT: Yes (GLASSES) Loss of Vision: Bilateral Hearing Impairment: Denies Cancer: No Psychosocial: Yes Depression Integumentary: No Blood Disorders: No Adverse Reaction/Blood Tranf: No (N/A) Physical Exam Vital Signs Vital Signs - First Documented 02/07/22 11:20 Temp 36.3 Pulse 64 Resp 16 B/P (MAP) 159/98 (118) Pulse Ox 98 O2 Delivery Room Air Capillary Refill : Less Than 3 Seconds Height/Weight/BMI Height: 5'4.00" Weight: 204lbs. 0.0oz. 92.571997ry; 36.00 BMI Method: General Appearance: WD/WN, no apparent distress HEENT: PERRL/EOMI Respiratory: lungs clear, normal breath sounds, no respiratory distress, no accessory muscle use Cardiovascular: regular rate, rhythm Gastrointestinal: soft, tenderness (Mild diffuse) Extremities: normal range of motion, normal inspection Neurologic/Psychiatric: alert, normal mood/affect, oriented x 3 Skin: normal color, warm/dry Progress/Results/Core Measures Results/Orders Lab Results Laboratory Tests Test 02/07/22 12:02 02/07/22 12:09 Range/Units Urine Color YELLOW Urine Clarity CLEAR Urine pH 6.5 5-9 Urine Specific [place] <=1.005 1.016-1.022 Urine Protein NEGATIVE NEGATIVE Urine Glucose (UA) NEGATIVE NEGATIVE Urine Ketones NEGATIVE NEGATIVE Urine Nitrite NEGATIVE NEGATIVE Urine Bilirubin NEGATIVE NEGATIVE Urine Urobilinogen 0.2 < = 1.0 MG/DL Urine Leukocyte Esterase NEGATIVE NEGATIVE Urine RBC (Auto) NEGATIVE NEGATIVE Urine RBC NONE /HPF Urine WBC NONE /HPF Urine Squamous Epithelial Cells 0-2 /HPF Urine Crystals NONE /LPF Urine Bacteria NEGATIVE /HPF Urine Casts NONE /LPF Urine Mucus NEGATIVE /LPF Urine Culture Indicated NO White Blood Count 7.3 4.3-11.0 10^3/uL Red Blood Count 4.11 3.80-5.11 10^6/uL Hemoglobin 13.0 11.5-16.0 g/dL Hematocrit 38 35-52 % Mean Corpuscular Volume 93 80-99 fL Mean Corpuscular Hemoglobin 32 25-34 pg Mean Corpuscular Hemoglobin Concent 34 32-36 g/dL Red Cell Distribution Width 12.9 10.0-14.5 % Platelet Count 242 130-400 10^3/uL Mean Platelet Volume 9.9 9.0-12.2 fL Immature Granulocyte % (Auto) 0 % Neutrophils (%) (Auto) 57 42-75 % Lymphocytes (%) (Auto) 34 12-44 % Monocytes (%) (Auto) 7 0-12 % Eosinophils (%) (Auto) 1 0-10 % Basophils (%) (Auto) 1 0-10 % Neutrophils # (Auto) 4.2 1.8-7.8 10^3/uL Lymphocytes # (Auto) 2.5 1.0-4.0 10^3/uL Monocytes # (Auto) 0.5 0.0-1.0 10^3/uL Eosinophils # (Auto) 0.1 0.0-0.3 10^3/uL Basophils # (Auto) 0.1 0.0-0.1 10^3/uL Immature Granulocyte # (Auto) 0.0 0.0-0.1 10^3/uL Sodium Level 140 135-145 MMOL/L Potassium Level 4.0 3.6-5.0 MMOL/L Chloride Level 107 98-107 MMOL/L Carbon Dioxide Level 24 21-32 MMOL/L Anion Gap 9 5-14 MMOL/L Blood Urea Nitrogen 14 7-18 MG/DL Creatinine 0.83 0.60-1.30 MG/DL Estimat Glomerular Filtration Rate 83 BUN/Creatinine Ratio 17 Glucose Level 109 H 70-105 MG/DL Calcium Level 9.2 8.5-10.1 MG/DL My Orders Orders - SUKUMAR BEJARANO MD Ed Iv/Invasive Line Start (02/07/22 11:47) Cbc With Automated Diff (02/07/22 11:47) Basic Metabolic Panel (02/07/22 11:47) Ua Culture If Indicated (02/07/22 11:47) Ondansetron Injection (Zofran Injectio (02/07/22 12:00) Fecal Occult Bedside (02/07/22 12:19) Abdomen/Kub 1view (02/07/22 12:34) Medications Given in ED Vital Signs/I&O 02/07/22 02/07/22 11:20 14:00 Temp 36.3 Pulse 64 Resp 16 B/P (MAP) 159/98 (118) 135/86 Pulse Ox 98 O2 Delivery Room Air Blood Pressure Mean: 118 Progress Progress Note : Time: 13:24 Progress Note Patient reevaluated after basic labs and a KUB. She is fairly comfortable but still feels "full". Vital signs are stable, labs are reassuring as is the KUB which shows just moderate stool burden. We will send her home on some GoLytely as she has been doing MiraLAX, stool softeners and enema at home. She is comfortable with plan of care. I advised her to take Tylenol and/or ibuprofen. She has no physical exam findings concerning for acute abdomen. No concerns for bowel obstruction, appendicitis, acute cholecystitis etc. Return precautions provided. Patient verbalized understanding all questions are sought and answered. Diagnostic Imaging Comments [facility]. [place], [place] NAME: OLAMIDE BARBER [facility] REC#: [id number] PT STATUS: REG ER : 1965 PHYSICIAN: SUKUMAR BEJARANO MD ADMIT DATE: 02/07/22/ER Draft Date of Exam:11/10/22 ABDOMEN/KUB 1VIEW INDICATION: Abdominal pain and swelling with constipation for 2 weeks. Patient is on hydrocodone. EXAMINATION: KUB FINDINGS: There is moderate stool burden present throughout the colon from the cecum to the rectum. There is no impacted stool in the rectal vault. The stomach and small bowel are not distended. There is no organomegaly. No pathologic calcifications. Moderate degenerative changes noted throughout the lumbar spine. IMPRESSION: There is moderate stool burden. No evidence of bowel obstruction. Dictated on workstation # [id number] Dict: 02/07/22 1305 Trans: 02/07/22 1309 [id number] Interpreted by: BELEN FERGUSON MD Electronically signed by: Departure Impression Primary Impression: Abdominal pain Qualified Codes: R10.84 - Generalized abdominal pain Additional Impression: Constipation Qualified Codes: K59.00 - Constipation, unspecified Disposition: HOME, SELF-CARE Condition: Stable Departure-Patient Inst. Decision time for Depature: 13:30 Referrals: JASIEL GARNER (PCP) Primary Care Physician [facility] (Family) Primary Care Physician Patient Instructions: Constipation in Adults Add. Discharge Instructions: Try to avoid taking your pain medication for the rest of the day. Start taking your stool softeners twice daily. I have written you prescription for GoLytely. Mix this with Sprite, you can do this one 8 ounce glass at a time. I would recommend you try and get the entire gallon down today. You will eventually be pooping clear liquids. You can expect to have lots of abdominal cramping. If you have worsening pain, especially with passing blood in your stool or persistent vomiting please come back to the emergency room for reevaluation. Scripts Peg/Electrolytes (Golytely Solution) 236-22.74G Soln 4000 ML PO ONCE, #1 EA Prov: SUKUMAR BEJARANO MD 02/07/22 Copy Copies To 1: ROLA WASHINGTON KATHRYN M MD Feb 07, 2022 11:39
[2022-02-07] MEDS ORDERED: ONDANSETRON 4 MG/2 ML (SDV) Z0FRAN IVP ONE (12:00)
[2022-02-07 12:06] LABS: BILIRUBIN,URINE NEGATIVE (NEGATIVE); CLARITY,URINE CLEAR; COLOR,URINE YELLOW; GLUCOSE, URINE (UA) NEGATIVE (NEGATIVE); KETONES,URINE NEGATIVE (NEGATIVE); LEUKOCYTE ESTERASE ,URINE NEGATIVE (NEGATIVE); NITRITE,URINE NEGATIVE (NEGATIVE); PH,URINE 6.5 (5-9); PROTEIN,URINE NEGATIVE (NEGATIVE)
[2022-02-07 12:12] LABS: BASOPHILS # (AUTO) 0.1 10^3/uL (0.0-0.1); BASOPHILS % (AUTO) 1 % (0-10); EOSINOPHILS # (AUTO) 0.1 10^3/uL (0.0-0.3); EOSINOPHILS % (AUTO) 1 % (0-10); HEMATOCRIT 38 % (35-52); LYMPHOCYTES # (AUTO) 2.5 10^3/uL (1.0-4.0); LYMPHOCYTES % (AUTO) 34 % (12-44); MEAN CORPUSCULAR HEMOGLOBIN 32 pg (25-34); MEAN CORPUSCULAR HGB CONC 34 g/dL (32-36); MEAN CORPUSCULAR VOLUME 93 fL (80-99); MEAN PLATELET VOLUME 9.9 fL (9.0-12.2); MONOCYTES # (AUTO) 0.5 10^3/uL (0.0-1.0); MONOCYTES % (AUTO) 7 % (0-12); NEUTROPHILS # (AUTO) 4.2 10^3/uL (1.8-7.8); NEUTROPHILS % (AUTO) 57 % (42-75); PLATELET COUNT 242 10^3/uL (130-400); WHITE BLOOD COUNT 7.3 10^3/uL (4.3-11.0)
[2022-02-07 12:15] LABS: BACTERIA,URINE NEGATIVE /HPF; SQUAMOUS EPITHELIAL CELL,UR 0-2 /HPF
[2022-02-07 12:23] LABS: CALCIUM 9.2 MG/DL (8.5-10.1)
[2022-02-07 12:27] LABS: CREATININE SERUM 0.83 MG/DL (0.60-1.30)
--- NOTE | 2022-02-07 13:09 | Diagnostic Imaging Report ---
INDICATION: Abdominal pain and swelling with constipation for 2 weeks. Patient is on hydrocodone. EXAMINATION: KUB FINDINGS: There is moderate stool burden present throughout the colon from the cecum to the rectum. There is no impacted stool in the rectal vault. The stomach and small bowel are not distended. There is no organomegaly. No pathologic calcifications. Moderate degenerative changes noted throughout the lumbar spine. IMPRESSION: There is moderate stool burden. No evidence of bowel obstruction. Dictated by: Dictated on workstation # [id number]
[2022-02-07] MEDS ORDERED: CLT4KB PO (13:31)
[2022-02-07 14:00] VITALS: BP 135/86
== END 2022-02-07 14:00 | disposition home or self-care (01) ==
LOC: EDUNIT# 11:10 → ER 11:12
DX: K59.00 Constipation, unspecified (principal); G47.33 Obstructive sleep apnea (adult) (pediatric); E66.9 Obesity, unspecified; Z68.36 Body mass index [BMI] 36.0-36.9, adult; Z28.310 Unvaccinated for COVID-19; Z99.89 Dependence on other enabling machines and devices
CPT/HCPCS: 36415; 74018; 80048; 81000; 82274; 85025